=== PATIENT | male | born 1960 | race Caucasian/White ===

== ENCOUNTER → 2023-06-07 07:59 | Outpatient (REF) | payer BC, SELFPAY ==
[2023-06-07 08:23] LABS: % Basophils 0.8 % (0-2); % Eosinophils 1.3 % (0-6); % Immature Granulocytes 6.1 % (0-0.5); % Lymphocytes 9.9 % (20.5-51.1); % Monocytes 6.7 % (1.7-9.3); % Neutrophils 75.2 % (42.2-75.2); Absolute Basophils 0.1 10^3/uL (0-0.2); Absolute Eosinophils 0.2 10^3/uL (0-0.7); Absolute Immature Granulocytes 0.7 10^3/uL (0-0.05); Absolute Lymphocytes 1.2 10^3/uL (1.2-3.4); Absolute Monocytes 0.8 10^3/uL (0.1-0.6); Hematocrit 31.2 % (39.0-52.0); Mean Corp Hgb Conc. 35.3 g/dL (33.0-37.0); Mean Corpuscular Hgb 34.9 pg (27.0-31.0); Mean Platelet Volume 9.3 fL (7.4-10.4); Nucleated Red Blood Cells % 0.2 % (-); Platelet Count 149 10^3/uL (130-400); Red Blood Cell Count 3.15 10^6/uL (4.70-6.10); Red Cell Dist. Width 14.9 % (11.5-14.5); White Blood Cell Count 11.9 10^3/uL (4.8-10.8)
[2023-06-07 09:09] LABS: ALT (SGPT) 30 U/L (0-50); AST (SGOT) 30 U/L (17-59); Albumin 4.3 g/dl (3.5-5.0); Alkaline Phosphatase 131 U/L (38-126); Blood Urea Nitrogen 23 mg/dl (9-20); Carbon Dioxide 23 mmol/L (22-30); Chloride 99 mmol/L (98-107); Glucose 129 mg/dl (70-99); Potassium 3.8 mmol/L (3.5-5.1); Sodium 137 mmol/L (135-145); Total Bilirubin 0.7 mg/dl (0.2-1.3); Total Protein 6.5 g/dl (6.3-8.2); eGFR > 60.00
[2023-06-07 09:17] LABS: Calcium 9.6 mg/dl (8.4-10.2)
[2023-06-07 09:20] LABS: TSH Reflex To Free T4 1.58 uIU/ml (0.47-4.68)
[2023-06-09 09:57] LABS: Magnesium 1.4 mg/dl (1.6-2.3)
== END ==
LOC: REG 07:59
PROVIDERS: ATTENDING PHYSICIAN Internal Medicine Hematology & Oncology; FAMILY PHYSICIAN Family Medicine
DX: C23 Malignant neoplasm of gallbladder (principal)
CPT/HCPCS: 36415; 80053; 83735; 84443; 85025

== ENCOUNTER → 2023-06-28 08:03 | Outpatient (REF) | payer BC, SELFPAY ==
[2023-06-28 08:48] LABS: % Basophils 2.1 % (0-2); % Eosinophils 2.6 % (0-6); % Immature Granulocytes 0.4 % (0-0.5); % Lymphocytes 21.6 % (20.5-51.1); % Monocytes 12.6 % (1.7-9.3); % Neutrophils 60.7 % (42.2-75.2); Absolute Basophils 0.1 10^3/uL (0-0.2); Absolute Eosinophils 0.1 10^3/uL (0-0.7); Absolute Monocytes 0.6 10^3/uL (0.1-0.6); Absolute Neutrophils 2.8 10^3/uL (1.4-6.5); Hematocrit 35.4 % (39.0-52.0); Hemoglobin 12.5 g/dL (13.0-18.0); Mean Corp Hgb Conc. 35.3 g/dL (33.0-37.0); Mean Corpuscular Volume 93.4 fL (80.0-94.0); Mean Platelet Volume 9.8 fL (7.4-10.4); Nucleated Red Blood Cells % 0 % (-); Platelet Count 181 10^3/uL (130-400); Red Blood Cell Count 3.79 10^6/uL (4.70-6.10); Red Cell Dist. Width 12.6 % (11.5-14.5); White Blood Cell Count 4.7 10^3/uL (4.8-10.8)
[2023-06-28 09:30] LABS: ALT (SGPT) 32 U/L (0-50); AST (SGOT) 39 U/L (17-59); Albumin 4.2 g/dl (3.5-5.0); Alkaline Phosphatase 76 U/L (38-126); Blood Urea Nitrogen 23 mg/dl (9-20); Calcium 10.2 mg/dl (8.4-10.2); Carbon Dioxide 25 mmol/L (22-30); Chloride 100 mmol/L (98-107); Glucose 128 mg/dl (70-99); Potassium 3.8 mmol/L (3.5-5.1); Sodium 138 mmol/L (135-145); Total Bilirubin 1.1 mg/dl (0.2-1.3); Total Protein 7.1 g/dl (6.3-8.2); eGFR > 60.00
[2023-06-28 10:09] LABS: TSH Reflex To Free T4 1.53 uIU/ml (0.47-4.68)
== END ==
LOC: REG 08:03
PROVIDERS: ATTENDING PHYSICIAN Internal Medicine Hematology & Oncology; FAMILY PHYSICIAN Family Medicine
DX: C23 Malignant neoplasm of gallbladder (principal)
CPT/HCPCS: 36415; 80053; 84443; 85025

== ENCOUNTER → 2023-06-30 11:00 | Outpatient (REF) | payer BC, SELFPAY ==
[2023-06-30 10:00] LABS: Magnesium 1.7 mg/dl (1.6-2.3)
== END ==
LOC: OIDL 11:00
PROVIDERS: ATTENDING PHYSICIAN Nurse Practitioner Adult Health
DX: C23 Malignant neoplasm of gallbladder (principal)
CPT/HCPCS: 83735

== ENCOUNTER → 2023-07-19 07:22 | Outpatient (REF) | payer BC, SELFPAY ==
[2023-07-19 08:13] LABS: % Basophils 1.5 % (0-2); % Eosinophils 3.5 % (0-6); % Immature Granulocytes 0.4 % (0-0.5); % Lymphocytes 18.3 % (20.5-51.1); % Neutrophils 67.3 % (42.2-75.2); Absolute Basophils 0.1 10^3/uL (0-0.2); Absolute Eosinophils 0.2 10^3/uL (0-0.7); Absolute Monocytes 0.5 10^3/uL (0.1-0.6); Absolute Neutrophils 3.6 10^3/uL (1.4-6.5); Hematocrit 38.1 % (39.0-52.0); Hemoglobin 13.4 g/dL (13.0-18.0); Mean Corp Hgb Conc. 35.2 g/dL (33.0-37.0); Mean Corpuscular Hgb 32.1 pg (27.0-31.0); Mean Corpuscular Volume 91.1 fL (80.0-94.0); Mean Platelet Volume 9.2 fL (7.4-10.4); Nucleated Red Blood Cells % 0 % (-); Platelet Count 157 10^3/uL (130-400); Red Blood Cell Count 4.18 10^6/uL (4.70-6.10); Red Cell Dist. Width 11.6 % (11.5-14.5); White Blood Cell Count 5.4 10^3/uL (4.8-10.8)
[2023-07-19 08:35] LABS: ALT (SGPT) 28 U/L (0-50); AST (SGOT) 34 U/L (17-59); Albumin 4.5 g/dl (3.5-5.0); Alkaline Phosphatase 75 U/L (38-126); Blood Urea Nitrogen 22 mg/dl (9-20); Calcium 9.5 mg/dl (8.4-10.2); Carbon Dioxide 24 mmol/L (22-30); Chloride 106 mmol/L (98-107); Glucose 110 mg/dl (70-99); Magnesium 1.6 mg/dl (1.6-2.3); Potassium 3.6 mmol/L (3.5-5.1); Sodium 137 mmol/L (135-145); Total Bilirubin 1.1 mg/dl (0.2-1.3); eGFR > 60.00
[2023-07-19 09:01] LABS: TSH Reflex To Free T4 2.01 uIU/ml (0.47-4.68)
[2023-07-19 10:05] LABS: Glycohemoglobin (HgbA1c) 4.9 % (4.0-5.6)
== END ==
LOC: REG 07:22
PROVIDERS: ATTENDING PHYSICIAN Internal Medicine Hematology & Oncology; FAMILY PHYSICIAN Family Medicine
DX: C23 Malignant neoplasm of gallbladder (principal)
CPT/HCPCS: 36415; 80053; 83036; 83735; 84443; 85025

== ENCOUNTER → 2023-08-09 07:15 | Outpatient (REF) | payer BC, SELFPAY ==
[2023-08-09 09:03] LABS: % Basophils 1.2 % (0-2); % Immature Granulocytes 0.4 % (0-0.5); % Lymphocytes 19.3 % (20.5-51.1); % Monocytes 9.7 % (1.7-9.3); % Neutrophils 67.4 % (42.2-75.2); Absolute Basophils 0.1 10^3/uL (0-0.2); Absolute Eosinophils 0.1 10^3/uL (0-0.7); Absolute Lymphocytes 1.3 10^3/uL (1.2-3.4); Absolute Monocytes 0.7 10^3/uL (0.1-0.6); Absolute Neutrophils 4.6 10^3/uL (1.4-6.5); Hematocrit 42.3 % (39.0-52.0); Hemoglobin 14.6 g/dL (13.0-18.0); Mean Corp Hgb Conc. 34.5 g/dL (33.0-37.0); Mean Corpuscular Hgb 30.5 pg (27.0-31.0); Mean Corpuscular Volume 88.5 fL (80.0-94.0); Mean Platelet Volume 9.1 fL (7.4-10.4); Nucleated Red Blood Cells % 0 % (-); Platelet Count 194 10^3/uL (130-400); Red Blood Cell Count 4.78 10^6/uL (4.70-6.10); Red Cell Dist. Width 11.6 % (11.5-14.5); White Blood Cell Count 6.8 10^3/uL (4.8-10.8)
[2023-08-09 09:31] LABS: ALT (SGPT) 31 U/L (0-50); AST (SGOT) 34 U/L (17-59); Albumin 4.9 g/dl (3.5-5.0); Alkaline Phosphatase 94 U/L (38-126); Blood Urea Nitrogen 27 mg/dl (9-20); Calcium 10.4 mg/dl (8.4-10.2); Carbon Dioxide 26 mmol/L (22-30); Chloride 99 mmol/L (98-107); Glucose 123 mg/dl (70-99); Potassium 3.9 mmol/L (3.5-5.1); Sodium 137 mmol/L (135-145); Total Bilirubin 0.8 mg/dl (0.2-1.3); Total Protein 7.5 g/dl (6.3-8.2); eGFR 51.99
[2023-08-09 09:46] LABS: Free T4 1.03 ng/dl (0.78-2.19)
[2023-08-09 10:00] LABS: TSH 1.91 uIU/ml (0.47-4.68)
== END ==
LOC: REG 07:15
PROVIDERS: ATTENDING PHYSICIAN Internal Medicine Hematology & Oncology; FAMILY PHYSICIAN Family Medicine
DX: C23 Malignant neoplasm of gallbladder (principal)
CPT/HCPCS: 36415; 80053; 84439; 84443; 85025

== ENCOUNTER → 2023-08-11 16:33 | Outpatient (REF) | payer BC, SELFPAY ==
[2023-08-11 11:14] LABS: ALT (SGPT) 28 U/L (0-50); AST (SGOT) 29 U/L (17-59); Albumin 4.3 g/dl (3.5-5.0); Alkaline Phosphatase 79 U/L (38-126); Blood Urea Nitrogen 18 mg/dl (9-20); Calcium 9.7 mg/dl (8.4-10.2); Carbon Dioxide 29 mmol/L (22-30); Chloride 98 mmol/L (98-107); Glucose 103 mg/dl (70-99); Sodium 136 mmol/L (135-145); Total Bilirubin 0.6 mg/dl (0.2-1.3); Total Protein 6.7 g/dl (6.3-8.2); eGFR > 60.00
== END ==
LOC: OIDL 16:33
PROVIDERS: ATTENDING PHYSICIAN Internal Medicine Hematology & Oncology
DX: C23 Malignant neoplasm of gallbladder (principal)
CPT/HCPCS: 80053

== ENCOUNTER → 2023-08-30 08:05 | Outpatient (REF) | payer BC, SELFPAY ==
[2023-08-30 08:36] LABS: % Basophils 1.2 % (0-2); % Eosinophils 2.1 % (0-6); % Immature Granulocytes 0.4 % (0-0.5); % Lymphocytes 18.2 % (20.5-51.1); % Monocytes 9.4 % (1.7-9.3); % Neutrophils 68.7 % (42.2-75.2); Absolute Basophils 0.1 10^3/uL (0-0.2); Absolute Eosinophils 0.2 10^3/uL (0-0.7); Absolute Lymphocytes 1.4 10^3/uL (1.2-3.4); Absolute Monocytes 0.7 10^3/uL (0.1-0.6); Absolute Neutrophils 5.3 10^3/uL (1.4-6.5); Hematocrit 41.8 % (39.0-52.0); Hemoglobin 14.4 g/dL (13.0-18.0); Mean Corp Hgb Conc. 34.4 g/dL (33.0-37.0); Mean Corpuscular Hgb 29.8 pg (27.0-31.0); Mean Corpuscular Volume 86.5 fL (80.0-94.0); Mean Platelet Volume 8.5 fL (7.4-10.4); Nucleated Red Blood Cells % 0 % (-); Platelet Count 195 10^3/uL (130-400); Red Blood Cell Count 4.83 10^6/uL (4.70-6.10); White Blood Cell Count 7.8 10^3/uL (4.8-10.8)
[2023-08-30 09:21] LABS: ALT (SGPT) 30 U/L (0-50); AST (SGOT) 39 U/L (17-59); Albumin 4.5 g/dl (3.5-5.0); Alkaline Phosphatase 87 U/L (38-126); Blood Urea Nitrogen 22 mg/dl (9-20); Calcium 9.9 mg/dl (8.4-10.2); Carbon Dioxide 28 mmol/L (22-30); Chloride 101 mmol/L (98-107); Glucose 120 mg/dl (70-99); Potassium 3.8 mmol/L (3.5-5.1); Sodium 136 mmol/L (135-145); Total Bilirubin 0.8 mg/dl (0.2-1.3); eGFR > 60.00
[2023-08-30 10:44] LABS: TSH Reflex To Free T4 2.42 uIU/ml (0.47-4.68)
== END ==
LOC: REG 08:05
PROVIDERS: ATTENDING PHYSICIAN Internal Medicine Hematology & Oncology
DX: C23 Malignant neoplasm of gallbladder (principal)
CPT/HCPCS: 36415; 80053; 84443; 85025

== ENCOUNTER → 2023-09-20 07:48 | Outpatient (REF) | payer BC, SELFPAY ==
[2023-09-20 08:56] LABS: % Basophils 1.1 % (0-2); % Eosinophils 3.6 % (0-6); % Immature Granulocytes 0.4 % (0-0.5); % Lymphocytes 19.6 % (20.5-51.1); % Monocytes 11.1 % (1.7-9.3); % Neutrophils 64.2 % (42.2-75.2); Absolute Basophils 0.1 10^3/uL (0-0.2); Absolute Eosinophils 0.3 10^3/uL (0-0.7); Absolute Lymphocytes 1.4 10^3/uL (1.2-3.4); Absolute Monocytes 0.8 10^3/uL (0.1-0.6); Absolute Neutrophils 4.7 10^3/uL (1.4-6.5); Hematocrit 41.7 % (39.0-52.0); Hemoglobin 14.5 g/dL (13.0-18.0); Mean Corp Hgb Conc. 34.8 g/dL (33.0-37.0); Mean Corpuscular Hgb 29.4 pg (27.0-31.0); Mean Corpuscular Volume 84.6 fL (80.0-94.0); Nucleated Red Blood Cells % 0 % (-); Platelet Count 188 10^3/uL (130-400); Red Blood Cell Count 4.93 10^6/uL (4.70-6.10); Red Cell Dist. Width 12.9 % (11.5-14.5); White Blood Cell Count 7.3 10^3/uL (4.8-10.8)
[2023-09-20 09:34] LABS: ALT (SGPT) 24 U/L (0-50); AST (SGOT) 35 U/L (17-59); Albumin 4.7 g/dl (3.5-5.0); Alkaline Phosphatase 87 U/L (38-126); Blood Urea Nitrogen 22 mg/dl (9-20); Calcium 10.3 mg/dl (8.4-10.2); Carbon Dioxide 25 mmol/L (22-30); Chloride 100 mmol/L (98-107); Glucose 117 mg/dl (70-99); Potassium 3.7 mmol/L (3.5-5.1); Sodium 139 mmol/L (135-145); Total Bilirubin 1.2 mg/dl (0.2-1.3); Total Protein 7.4 g/dl (6.3-8.2); eGFR > 60.00
[2023-09-20 10:03] LABS: TSH Reflex To Free T4 3.11 uIU/ml (0.47-4.68)
== END ==
LOC: REG 07:48
PROVIDERS: ATTENDING PHYSICIAN Internal Medicine Hematology & Oncology; FAMILY PHYSICIAN Family Medicine
DX: C23 Malignant neoplasm of gallbladder (principal)
CPT/HCPCS: 36415; 80053; 84443; 85025

== ENCOUNTER → 2023-10-11 07:51 | Outpatient (REF) | payer BC, SELFPAY ==
[2023-10-11 09:43] LABS: % Basophils 1.3 % (0-2); % Eosinophils 2.6 % (0-6); % Immature Granulocytes 0.6 % (0-0.5); % Monocytes 9.5 % (1.7-9.3); Absolute Basophils 0.1 10^3/uL (0-0.2); Absolute Eosinophils 0.2 10^3/uL (0-0.7); Absolute Immature Granulocytes 0.1 10^3/uL (0-0.05); Absolute Lymphocytes 1.4 10^3/uL (1.2-3.4); Absolute Monocytes 0.8 10^3/uL (0.1-0.6); Absolute Neutrophils 5.8 10^3/uL (1.4-6.5); Hematocrit 42.3 % (39.0-52.0); Hemoglobin 14.6 g/dL (13.0-18.0); Mean Corp Hgb Conc. 34.5 g/dL (33.0-37.0); Mean Corpuscular Hgb 29.3 pg (27.0-31.0); Mean Corpuscular Volume 84.8 fL (80.0-94.0); Mean Platelet Volume 8.8 fL (7.4-10.4); Nucleated Red Blood Cells % 0 % (-); Platelet Count 217 10^3/uL (130-400); Red Blood Cell Count 4.99 10^6/uL (4.70-6.10); Red Cell Dist. Width 13.5 % (11.5-14.5); White Blood Cell Count 8.4 10^3/uL (4.8-10.8)
[2023-10-11 11:44] LABS: ALT (SGPT) 25 U/L (0-50); AST (SGOT) 35 U/L (17-59); Albumin 4.8 g/dl (3.5-5.0); Alkaline Phosphatase 100 U/L (38-126); Blood Urea Nitrogen 23 mg/dl (9-20); Calcium 10.5 mg/dl (8.4-10.2); Carbon Dioxide 25 mmol/L (22-30); Chloride 102 mmol/L (98-107); Glucose 123 mg/dl (70-99); Potassium 3.9 mmol/L (3.5-5.1); Sodium 138 mmol/L (135-145); Total Bilirubin 1.3 mg/dl (0.2-1.3); Total Protein 7.6 g/dl (6.3-8.2); eGFR > 60.00
[2023-10-11 12:44] LABS: TSH Reflex To Free T4 2.31 uIU/ml (0.47-4.68)
== END ==
LOC: REG 07:51
PROVIDERS: ATTENDING PHYSICIAN Internal Medicine Hematology & Oncology; FAMILY PHYSICIAN Family Medicine
DX: C23 Malignant neoplasm of gallbladder (principal)
CPT/HCPCS: 36415; 80053; 84443; 85025

== ENCOUNTER → 2023-11-01 07:58 | Outpatient (REF) | payer BC, SELFPAY ==
[2023-11-01 08:45] LABS: % Basophils 1.4 % (0-2); % Eosinophils 1.7 % (0-6); % Immature Granulocytes 0.6 % (0-0.5); % Lymphocytes 17.8 % (20.5-51.1); % Monocytes 8.3 % (1.7-9.3); % Neutrophils 70.2 % (42.2-75.2); Absolute Basophils 0.1 10^3/uL (0-0.2); Absolute Eosinophils 0.1 10^3/uL (0-0.7); Absolute Immature Granulocytes 0.1 10^3/uL (0-0.05); Absolute Lymphocytes 1.4 10^3/uL (1.2-3.4); Absolute Monocytes 0.7 10^3/uL (0.1-0.6); Absolute Neutrophils 5.5 10^3/uL (1.4-6.5); Hematocrit 41.2 % (39.0-52.0); Hemoglobin 14.3 g/dL (13.0-18.0); Mean Corp Hgb Conc. 34.7 g/dL (33.0-37.0); Mean Corpuscular Hgb 29.3 pg (27.0-31.0); Mean Corpuscular Volume 84.4 fL (80.0-94.0); Nucleated Red Blood Cells % 0 % (-); Platelet Count 222 10^3/uL (130-400); Red Blood Cell Count 4.88 10^6/uL (4.70-6.10); Red Cell Dist. Width 13.8 % (11.5-14.5); White Blood Cell Count 7.8 10^3/uL (4.8-10.8)
[2023-11-01 09:15] LABS: ALT (SGPT) 25 U/L (0-50); AST (SGOT) 32 U/L (17-59); Albumin 4.8 g/dl (3.5-5.0); Alkaline Phosphatase 99 U/L (38-126); Blood Urea Nitrogen 23 mg/dl (9-20); Carbon Dioxide 24 mmol/L (22-30); Chloride 102 mmol/L (98-107); Glucose 126 mg/dl (70-99); Potassium 3.8 mmol/L (3.5-5.1); Sodium 138 mmol/L (135-145); Total Protein 7.2 g/dl (6.3-8.2); eGFR > 60.00
[2023-11-01 09:44] LABS: TSH Reflex To Free T4 2.42 uIU/ml (0.47-4.68)
== END ==
LOC: REG 07:58
PROVIDERS: ATTENDING PHYSICIAN Internal Medicine Hematology & Oncology; FAMILY PHYSICIAN Family Medicine
DX: C23 Malignant neoplasm of gallbladder (principal)
CPT/HCPCS: 36415; 80053; 84443; 85025

== ENCOUNTER → 2023-11-22 07:51 | Outpatient (REF) | payer BC, SELFPAY ==
[2023-11-22 09:06] LABS: % Basophils 1.2 % (0-2); % Eosinophils 1.8 % (0-6); % Immature Granulocytes 0.3 % (0-0.5); % Lymphocytes 17.7 % (20.5-51.1); % Monocytes 9.5 % (1.7-9.3); % Neutrophils 69.5 % (42.2-75.2); Absolute Basophils 0.1 10^3/uL (0-0.2); Absolute Eosinophils 0.1 10^3/uL (0-0.7); Absolute Lymphocytes 1.2 10^3/uL (1.2-3.4); Absolute Monocytes 0.6 10^3/uL (0.1-0.6); Absolute Neutrophils 4.7 10^3/uL (1.4-6.5); Hematocrit 41.5 % (39.0-52.0); Hemoglobin 14.2 g/dL (13.0-18.0); Mean Corp Hgb Conc. 34.2 g/dL (33.0-37.0); Mean Corpuscular Hgb 29.8 pg (27.0-31.0); Mean Platelet Volume 9.1 fL (7.4-10.4); Nucleated Red Blood Cells % 0 % (-); Platelet Count 196 10^3/uL (130-400); Red Blood Cell Count 4.77 10^6/uL (4.70-6.10); Red Cell Dist. Width 13.5 % (11.5-14.5); White Blood Cell Count 6.7 10^3/uL (4.8-10.8)
[2023-11-22 09:25] LABS: ALT (SGPT) 27 U/L (0-50); AST (SGOT) 36 U/L (17-59); Albumin 4.6 g/dl (3.5-5.0); Alkaline Phosphatase 105 U/L (38-126); Blood Urea Nitrogen 21 mg/dl (9-20); Calcium 10.2 mg/dl (8.4-10.2); Carbon Dioxide 27 mmol/L (22-30); Chloride 101 mmol/L (98-107); Glucose 115 mg/dl (70-99); Potassium 3.7 mmol/L (3.5-5.1); Sodium 139 mmol/L (135-145); Total Bilirubin 1.2 mg/dl (0.2-1.3); Total Protein 7.2 g/dl (6.3-8.2); eGFR > 60.00
[2023-11-22 09:54] LABS: TSH Reflex To Free T4 2.58 uIU/ml (0.47-4.68)
== END ==
LOC: REG 07:51
PROVIDERS: ATTENDING PHYSICIAN Internal Medicine Hematology & Oncology; FAMILY PHYSICIAN Family Medicine
DX: C23 Malignant neoplasm of gallbladder (principal)
CPT/HCPCS: 36415; 80053; 84443; 85025

== ENCOUNTER → 2023-12-13 08:32 | Outpatient (REF) | payer BC, SELFPAY ==
[2023-12-13 10:33] LABS: % Basophils 1.2 % (0-2); % Eosinophils 1.7 % (0-6); % Immature Granulocytes 0.7 % (0-0.5); % Lymphocytes 15.6 % (20.5-51.1); % Monocytes 9.5 % (1.7-9.3); % Neutrophils 71.3 % (42.2-75.2); Absolute Basophils 0.1 10^3/uL (0-0.2); Absolute Eosinophils 0.1 10^3/uL (0-0.7); Absolute Immature Granulocytes 0.1 10^3/uL (0-0.05); Absolute Lymphocytes 1.2 10^3/uL (1.2-3.4); Absolute Monocytes 0.7 10^3/uL (0.1-0.6); Absolute Neutrophils 5.4 10^3/uL (1.4-6.5); Hematocrit 41.8 % (39.0-52.0); Hemoglobin 14.4 g/dL (13.0-18.0); Mean Corp Hgb Conc. 34.4 g/dL (33.0-37.0); Mean Corpuscular Hgb 29.9 pg (27.0-31.0); Mean Corpuscular Volume 86.7 fL (80.0-94.0); Mean Platelet Volume 8.7 fL (7.4-10.4); Nucleated Red Blood Cells % 0 % (-); Platelet Count 202 10^3/uL (130-400); Red Blood Cell Count 4.82 10^6/uL (4.70-6.10); Red Cell Dist. Width 13.2 % (11.5-14.5); White Blood Cell Count 7.6 10^3/uL (4.8-10.8)
[2023-12-13 11:11] LABS: ALT (SGPT) 26 U/L (0-50); AST (SGOT) 41 U/L (17-59); Albumin 4.7 g/dl (3.5-5.0); Alkaline Phosphatase 122 U/L (38-126); Blood Urea Nitrogen 23 mg/dl (9-20); Calcium 9.9 mg/dl (8.4-10.2); Carbon Dioxide 25 mmol/L (22-30); Chloride 100 mmol/L (98-107); Glucose 104 mg/dl (70-99); Magnesium 1.8 mg/dl (1.6-2.3); Potassium 4.1 mmol/L (3.5-5.1); Sodium 138 mmol/L (135-145); Total Protein 7.2 g/dl (6.3-8.2); eGFR > 60.00
[2023-12-13 11:28] LABS: TSH Reflex To Free T4 1.69 uIU/ml (0.47-4.68)
[2023-12-13 12:12] LABS: Total Bilirubin 1.2 mg/dl (0.2-1.3)
== END ==
LOC: REG 08:32
PROVIDERS: ATTENDING PHYSICIAN Internal Medicine Hematology & Oncology; FAMILY PHYSICIAN Family Medicine
DX: C23 Malignant neoplasm of gallbladder (principal)
CPT/HCPCS: 36415; 80053; 83735; 84443; 85025

== ENCOUNTER → 2023-12-20 07:46 | Outpatient (REF) | payer BC, SELFPAY ==
[2023-12-20 09:40] LABS: % Eosinophils 2.4 % (0-6); % Immature Granulocytes 0.6 % (0-0.5); % Lymphocytes 14.7 % (20.5-51.1); % Monocytes 9.3 % (1.7-9.3); Absolute Basophils 0.1 10^3/uL (0-0.2); Absolute Eosinophils 0.2 10^3/uL (0-0.7); Absolute Immature Granulocytes 0.1 10^3/uL (0-0.05); Absolute Lymphocytes 1.2 10^3/uL (1.2-3.4); Absolute Monocytes 0.8 10^3/uL (0.1-0.6); Hematocrit 40.8 % (39.0-52.0); Hemoglobin 14.2 g/dL (13.0-18.0); Mean Corp Hgb Conc. 34.8 g/dL (33.0-37.0); Mean Corpuscular Hgb 29.5 pg (27.0-31.0); Mean Corpuscular Volume 84.8 fL (80.0-94.0); Mean Platelet Volume 8.6 fL (7.4-10.4); Nucleated Red Blood Cells % 0 % (-); Platelet Count 219 10^3/uL (130-400); Red Blood Cell Count 4.81 10^6/uL (4.70-6.10); Red Cell Dist. Width 13.1 % (11.5-14.5); White Blood Cell Count 8.3 10^3/uL (4.8-10.8)
[2023-12-20 10:21] LABS: ALT (SGPT) 28 U/L (0-50); AST (SGOT) 40 U/L (17-59); Albumin 4.6 g/dl (3.5-5.0); Alkaline Phosphatase 137 U/L (38-126); Blood Urea Nitrogen 19 mg/dl (9-20); Carbon Dioxide 26 mmol/L (22-30); Chloride 99 mmol/L (98-107); Glucose 115 mg/dl (70-99); Magnesium 1.9 mg/dl (1.6-2.3); Sodium 136 mmol/L (135-145); Total Bilirubin 0.9 mg/dl (0.2-1.3); eGFR > 60.00
[2023-12-20 10:46] LABS: TSH Reflex To Free T4 2.13 uIU/ml (0.47-4.68)
== END ==
LOC: REG 07:46
PROVIDERS: ATTENDING PHYSICIAN Internal Medicine Hematology & Oncology; FAMILY PHYSICIAN Family Medicine
DX: C23 Malignant neoplasm of gallbladder (principal)
CPT/HCPCS: 36415; 80053; 83735; 84443; 85025

== ENCOUNTER → 2023-12-27 07:38 | Outpatient (REF) | payer BC, SELFPAY ==
[2023-12-27 09:13] LABS: % Eosinophils 1.7 % (0-6); % Immature Granulocytes 0.5 % (0-0.5); % Lymphocytes 17.6 % (20.5-51.1); % Monocytes 2.1 % (1.7-9.3); % Neutrophils 77.1 % (42.2-75.2); Absolute Basophils 0.1 10^3/uL (0-0.2); Absolute Eosinophils 0.1 10^3/uL (0-0.7); Absolute Monocytes 0.1 10^3/uL (0.1-0.6); Absolute Neutrophils 4.5 10^3/uL (1.4-6.5); Hematocrit 40.4 % (39.0-52.0); Hemoglobin 13.8 g/dL (13.0-18.0); Mean Corp Hgb Conc. 34.2 g/dL (33.0-37.0); Mean Corpuscular Hgb 29.2 pg (27.0-31.0); Mean Corpuscular Volume 85.4 fL (80.0-94.0); Mean Platelet Volume 8.7 fL (7.4-10.4); Nucleated Red Blood Cells % 0 % (-); Platelet Count 207 10^3/uL (130-400); Red Blood Cell Count 4.73 10^6/uL (4.70-6.10); Red Cell Dist. Width 12.6 % (11.5-14.5); White Blood Cell Count 5.8 10^3/uL (4.8-10.8)
[2023-12-27 10:04] LABS: ALT (SGPT) 136 U/L (0-50); AST (SGOT) 70 U/L (17-59); Albumin 4.4 g/dl (3.5-5.0); Alkaline Phosphatase 116 U/L (38-126); Blood Urea Nitrogen 26 mg/dl (9-20); Calcium 10.1 mg/dl (8.4-10.2); Carbon Dioxide 33 mmol/L (22-30); Chloride 95 mmol/L (98-107); Glucose 108 mg/dl (70-99); Magnesium 1.7 mg/dl (1.6-2.3); Potassium 4.4 mmol/L (3.5-5.1); Sodium 139 mmol/L (135-145); Total Bilirubin 1.2 mg/dl (0.2-1.3); eGFR > 60.00
[2023-12-27 10:33] LABS: TSH Reflex To Free T4 1.59 uIU/ml (0.47-4.68)
== END ==
LOC: REG 07:38
PROVIDERS: ATTENDING PHYSICIAN Internal Medicine Hematology & Oncology; FAMILY PHYSICIAN Family Medicine
DX: C23 Malignant neoplasm of gallbladder (principal)
CPT/HCPCS: 36415; 80053; 83735; 84443; 85025

== ENCOUNTER → 2024-01-10 08:14 | Outpatient (REF) | payer BC, SELFPAY ==
[2024-01-10 09:33] LABS: % Basophils 0.6 % (0-2); % Eosinophils 1.9 % (0-6); % Immature Granulocytes 0.6 % (0-0.5); % Lymphocytes 24.2 % (20.5-51.1); % Monocytes 9.7 % (1.7-9.3); Absolute Eosinophils 0.1 10^3/uL (0-0.7); Absolute Lymphocytes 0.9 10^3/uL (1.2-3.4); Absolute Monocytes 0.4 10^3/uL (0.1-0.6); Absolute Neutrophils 2.3 10^3/uL (1.4-6.5); Hematocrit 35.6 % (39.0-52.0); Hemoglobin 12.3 g/dL (13.0-18.0); Mean Corp Hgb Conc. 34.6 g/dL (33.0-37.0); Mean Corpuscular Hgb 29.3 pg (27.0-31.0); Mean Corpuscular Volume 84.8 fL (80.0-94.0); Mean Platelet Volume 9.1 fL (7.4-10.4); Nucleated Red Blood Cells % 0 % (-); Platelet Count 154 10^3/uL (130-400); Red Cell Dist. Width 13.5 % (11.5-14.5); White Blood Cell Count 3.6 10^3/uL (4.8-10.8)
[2024-01-10 10:02] LABS: Magnesium 1.5 mg/dl (1.6-2.3)
[2024-01-10 10:20] LABS: TSH Reflex To Free T4 1.79 uIU/ml (0.47-4.68)
[2024-01-11 08:30] LABS: ALT (SGPT) 33 U/L (0-50); AST (SGOT) 34 U/L (17-59); Albumin 4.5 g/dl (3.5-5.0); Alkaline Phosphatase 142 U/L (38-126); Blood Urea Nitrogen 23 mg/dl (9-20); Calcium 9.6 mg/dl (8.4-10.2); Carbon Dioxide 22 mmol/L (22-30); Chloride 101 mmol/L (98-107); Glucose 123 mg/dl (70-99); Potassium 3.7 mmol/L (3.5-5.1); Sodium 139 mmol/L (135-145); Total Bilirubin 0.6 mg/dl (0.2-1.3); Total Protein 6.8 g/dl (6.3-8.2); eGFR > 60.00
== END ==
LOC: REG 08:14
PROVIDERS: ATTENDING PHYSICIAN Internal Medicine Hematology & Oncology; FAMILY PHYSICIAN Family Medicine
DX: C23 Malignant neoplasm of gallbladder (principal)
CPT/HCPCS: 36415; 80053; 83735; 84443; 85025

== ENCOUNTER → 2024-01-17 08:43 | Outpatient (REF) | payer BC, SELFPAY ==
[2024-01-17 10:04] LABS: ALT (SGPT) 44 U/L (0-50); AST (SGOT) 34 U/L (17-59); Albumin 4.3 g/dl (3.5-5.0); Alkaline Phosphatase 113 U/L (38-126); Blood Urea Nitrogen 29 mg/dl (9-20); Carbon Dioxide 27 mmol/L (22-30); Chloride 97 mmol/L (98-107); Glucose 117 mg/dl (70-99); Magnesium 1.5 mg/dl (1.6-2.3); Potassium 4.5 mmol/L (3.5-5.1); Sodium 137 mmol/L (135-145); Total Bilirubin 0.8 mg/dl (0.2-1.3); Total Protein 6.7 g/dl (6.3-8.2); eGFR > 60.00
[2024-01-17 10:57] LABS: TSH Reflex To Free T4 1.45 uIU/ml (0.47-4.68)
[2024-01-17 11:14] LABS: Band Neutrophils 1 % (0-3); Segmented Neutrophils 36 % (42-75)
[2024-01-17 11:15] LABS: Atypical Lymphocytes 5 %; Eosinophils 1 % (0-6); Lymphocytes 50 % (20-51); Monocytes 5 % (2-9); Myelocytes 2 % (-); Total Cells Counted 100
[2024-01-17 11:19] LABS: Absolute Neutrophils -Man Diff 0.5 10^3/uL (1.4-6.5); Hematocrit 35.3 % (39.0-52.0); Hemoglobin 12.3 g/dL (13.0-18.0); Mean Corp Hgb Conc. 34.8 g/dL (33.0-37.0); Mean Corpuscular Hgb 30.1 pg (27.0-31.0); Mean Corpuscular Volume 86.5 fL (80.0-94.0); Mean Platelet Volume 8.2 fL (7.4-10.4); Platelet Count 394 10^3/uL (130-400); Red Blood Cell Count 4.08 10^6/uL (4.70-6.10); Red Cell Dist. Width 13.4 % (11.5-14.5); White Blood Cell Count 1.5 10^3/uL (4.8-10.8)
[2024-01-17 11:20] LABS: Normal RBC Morphology Yes; Platelets Checked Yes
== END ==
LOC: REG 08:43
PROVIDERS: ATTENDING PHYSICIAN Internal Medicine Hematology & Oncology; FAMILY PHYSICIAN Family Medicine
DX: C23 Malignant neoplasm of gallbladder (principal)
CPT/HCPCS: 36415; 80053; 83735; 84443; 85025

== ENCOUNTER → 2024-01-31 08:04 | Outpatient (REF) | payer BC, SELFPAY ==
[2024-01-31 08:34] LABS: % Basophils 0.6 % (0-2); % Eosinophils 0.3 % (0-6); % Immature Granulocytes 7.8 % (0-0.5); % Lymphocytes 4.7 % (20.5-51.1); % Neutrophils 78.6 % (42.2-75.2); Absolute Basophils 0.1 10^3/uL (0-0.2); Absolute Eosinophils 0.1 10^3/uL (0-0.7); Absolute Immature Granulocytes 1.5 10^3/uL (0-0.05); Absolute Lymphocytes 0.9 10^3/uL (1.2-3.4); Absolute Monocytes 1.6 10^3/uL (0.1-0.6); Absolute Neutrophils 15.3 10^3/uL (1.4-6.5); Hematocrit 30.8 % (39.0-52.0); Hemoglobin 10.9 g/dL (13.0-18.0); Mean Corp Hgb Conc. 35.4 g/dL (33.0-37.0); Mean Corpuscular Hgb 29.8 pg (27.0-31.0); Mean Corpuscular Volume 84.2 fL (80.0-94.0); Mean Platelet Volume 9.7 fL (7.4-10.4); Nucleated Red Blood Cells % 0.1 % (-); Platelet Count 161 10^3/uL (130-400); Red Blood Cell Count 3.66 10^6/uL (4.70-6.10); Red Cell Dist. Width 15.7 % (11.5-14.5); White Blood Cell Count 19.4 10^3/uL (4.8-10.8)
[2024-01-31 08:59] LABS: ALT (SGPT) 26 U/L (0-50); AST (SGOT) 28 U/L (17-59); Albumin 3.9 g/dl (3.5-5.0); Alkaline Phosphatase 157 U/L (38-126); Blood Urea Nitrogen 19 mg/dl (9-20); Calcium 9.1 mg/dl (8.4-10.2); Carbon Dioxide 27 mmol/L (22-30); Chloride 94 mmol/L (98-107); Glucose 149 mg/dl (70-99); Magnesium 1.5 mg/dl (1.6-2.3); Potassium 3.7 mmol/L (3.5-5.1); Sodium 136 mmol/L (135-145); Total Bilirubin 0.9 mg/dl (0.2-1.3); Total Protein 6.4 g/dl (6.3-8.2); eGFR > 60.00
== END ==
LOC: REG 08:04
PROVIDERS: ATTENDING PHYSICIAN Internal Medicine Hematology & Oncology; FAMILY PHYSICIAN Family Medicine
DX: C23 Malignant neoplasm of gallbladder (principal)
CPT/HCPCS: 36415; 80053; 83735; 84443; 85025

== ENCOUNTER → 2024-02-07 08:16 | Outpatient (REF) | payer BC, SELFPAY ==
[2024-02-07 08:51] LABS: % Basophils 1.3 % (0-2); % Eosinophils 1.3 % (0-6); % Immature Granulocytes 0.9 % (0-0.5); % Monocytes 3.1 % (1.7-9.3); % Neutrophils 83.4 % (42.2-75.2); Absolute Basophils 0.1 10^3/uL (0-0.2); Absolute Eosinophils 0.1 10^3/uL (0-0.7); Absolute Immature Granulocytes 0.1 10^3/uL (0-0.05); Absolute Lymphocytes 0.6 10^3/uL (1.2-3.4); Absolute Monocytes 0.2 10^3/uL (0.1-0.6); Absolute Neutrophils 5.3 10^3/uL (1.4-6.5); Hemoglobin 10.5 g/dL (13.0-18.0); Mean Corpuscular Hgb 30.9 pg (27.0-31.0); Mean Corpuscular Volume 88.2 fL (80.0-94.0); Nucleated Red Blood Cells % 0 % (-); Platelet Count 350 10^3/uL (130-400); Red Cell Dist. Width 15.7 % (11.5-14.5); White Blood Cell Count 6.4 10^3/uL (4.8-10.8)
[2024-02-07 09:35] LABS: ALT (SGPT) 76 U/L (0-50); AST (SGOT) 38 U/L (17-59); Albumin 4.1 g/dl (3.5-5.0); Alkaline Phosphatase 134 U/L (38-126); Blood Urea Nitrogen 23 mg/dl (9-20); Calcium 9.7 mg/dl (8.4-10.2); Carbon Dioxide 29 mmol/L (22-30); Chloride 99 mmol/L (98-107); Glucose 118 mg/dl (70-99); Magnesium 1.6 mg/dl (1.6-2.3); Potassium 4.5 mmol/L (3.5-5.1); Sodium 140 mmol/L (135-145); Total Protein 6.5 g/dl (6.3-8.2); eGFR > 60.00
[2024-02-07 10:08] LABS: TSH Reflex To Free T4 1.24 uIU/ml (0.47-4.68)
== END ==
LOC: REG 08:16
PROVIDERS: ATTENDING PHYSICIAN Internal Medicine Hematology & Oncology; FAMILY PHYSICIAN Family Medicine
DX: C23 Malignant neoplasm of gallbladder (principal)
CPT/HCPCS: 36415; 80053; 83735; 84443; 85025

== ENCOUNTER → 2024-02-21 10:40 | Outpatient (REF) | payer BC, SELFPAY ==
[2024-02-21 11:41] LABS: % Basophils 0.5 % (0-2); % Eosinophils 0.2 % (0-6); % Immature Granulocytes 4.2 % (0-0.5); % Lymphocytes 3.8 % (20.5-51.1); % Monocytes 7.3 % (1.7-9.3); Absolute Basophils 0.1 10^3/uL (0-0.2); Absolute Immature Granulocytes 0.7 10^3/uL (0-0.05); Absolute Lymphocytes 0.7 10^3/uL (1.2-3.4); Absolute Monocytes 1.3 10^3/uL (0.1-0.6); Absolute Neutrophils 14.6 10^3/uL (1.4-6.5); Hematocrit 27.1 % (39.0-52.0); Hemoglobin 9.4 g/dL (13.0-18.0); Mean Corp Hgb Conc. 34.7 g/dL (33.0-37.0); Mean Corpuscular Hgb 30.9 pg (27.0-31.0); Mean Corpuscular Volume 89.1 fL (80.0-94.0); Mean Platelet Volume 9.5 fL (7.4-10.4); Nucleated Red Blood Cells % 0 % (-); Platelet Count 153 10^3/uL (130-400); Red Blood Cell Count 3.04 10^6/uL (4.70-6.10); White Blood Cell Count 17.3 10^3/uL (4.8-10.8)
[2024-02-21 14:26] LABS: ALT (SGPT) 20 U/L (0-50); AST (SGOT) 21 U/L (17-59); Albumin 4.3 g/dl (3.5-5.0); Alkaline Phosphatase 157 U/L (38-126); Blood Urea Nitrogen 26 mg/dl (9-20); Calcium 8.9 mg/dl (8.4-10.2); Carbon Dioxide 25 mmol/L (22-30); Chloride 95 mmol/L (98-107); Glucose 114 mg/dl (70-99); Magnesium 1.6 mg/dl (1.6-2.3); Potassium 3.7 mmol/L (3.5-5.1); Sodium 136 mmol/L (135-145); Total Bilirubin 1.4 mg/dl (0.2-1.3); Total Protein 6.7 g/dl (6.3-8.2); eGFR > 60.00
[2024-02-21 14:35] LABS: TSH Reflex To Free T4 1.35 uIU/ml (0.47-4.68)
== END ==
LOC: REG 10:40
PROVIDERS: ATTENDING PHYSICIAN Internal Medicine Hematology & Oncology; FAMILY PHYSICIAN Family Medicine
DX: C23 Malignant neoplasm of gallbladder (principal)
CPT/HCPCS: 36415; 80053; 83735; 84443; 85025

== ENCOUNTER → 2024-02-28 07:57 | Outpatient (REF) | payer BC, SELFPAY ==
[2024-02-28 09:47] LABS: % Basophils 0.8 % (0-2); % Eosinophils 0.9 % (0-6); % Immature Granulocytes 0.6 % (0-0.5); % Lymphocytes 10.8 % (20.5-51.1); % Monocytes 3.8 % (1.7-9.3); % Neutrophils 83.1 % (42.2-75.2); Absolute Eosinophils 0.1 10^3/uL (0-0.7); Absolute Lymphocytes 0.6 10^3/uL (1.2-3.4); Absolute Monocytes 0.2 10^3/uL (0.1-0.6); Absolute Neutrophils 4.4 10^3/uL (1.4-6.5); Hematocrit 26.3 % (39.0-52.0); Hemoglobin 8.7 g/dL (13.0-18.0); Mean Corp Hgb Conc. 33.1 g/dL (33.0-37.0); Mean Corpuscular Hgb 30.2 pg (27.0-31.0); Mean Corpuscular Volume 91.3 fL (80.0-94.0); Mean Platelet Volume 8.4 fL (7.4-10.4); Nucleated Red Blood Cells % 0 % (-); Platelet Count 342 10^3/uL (130-400); Red Blood Cell Count 2.88 10^6/uL (4.70-6.10); Red Cell Dist. Width 18.1 % (11.5-14.5); White Blood Cell Count 5.3 10^3/uL (4.8-10.8)
[2024-02-28 10:12] LABS: ALT (SGPT) 74 U/L (0-50); AST (SGOT) 42 U/L (17-59); Albumin 4.2 g/dl (3.5-5.0); Alkaline Phosphatase 132 U/L (38-126); Blood Urea Nitrogen 25 mg/dl (9-20); Calcium 9.6 mg/dl (8.4-10.2); Carbon Dioxide 28 mmol/L (22-30); Chloride 98 mmol/L (98-107); Glucose 119 mg/dl (70-99); Magnesium 1.5 mg/dl (1.6-2.3); Potassium 4.5 mmol/L (3.5-5.1); Sodium 140 mmol/L (135-145); Total Bilirubin 0.7 mg/dl (0.2-1.3); Total Protein 6.6 g/dl (6.3-8.2); eGFR > 60.00
[2024-02-28 10:37] LABS: TSH Reflex To Free T4 1.33 uIU/ml (0.47-4.68)
== END ==
LOC: REG 07:57
PROVIDERS: ATTENDING PHYSICIAN Internal Medicine Hematology & Oncology; FAMILY PHYSICIAN Family Medicine
DX: C23 Malignant neoplasm of gallbladder (principal)
CPT/HCPCS: 36415; 80053; 83735; 84443; 85025

== ENCOUNTER → 2024-03-13 08:05 | Outpatient (REF) | payer BC, SELFPAY ==
[2024-03-13 08:48] LABS: % Basophils 0.7 % (0-2); % Eosinophils 0.9 % (0-6); % Immature Granulocytes 4.6 % (0-0.5); % Lymphocytes 6.6 % (20.5-51.1); % Monocytes 7.4 % (1.7-9.3); % Neutrophils 79.8 % (42.2-75.2); Absolute Basophils 0.1 10^3/uL (0-0.2); Absolute Eosinophils 0.1 10^3/uL (0-0.7); Absolute Immature Granulocytes 0.6 10^3/uL (0-0.05); Absolute Lymphocytes 0.9 10^3/uL (1.2-3.4); Absolute Neutrophils 11.1 10^3/uL (1.4-6.5); Hematocrit 28.5 % (39.0-52.0); Hemoglobin 9.4 g/dL (13.0-18.0); Mean Corpuscular Hgb 32.2 pg (27.0-31.0); Mean Corpuscular Volume 97.6 fL (80.0-94.0); Mean Platelet Volume 9.8 fL (7.4-10.4); Nucleated Red Blood Cells % 0 % (-); Platelet Count 115 10^3/uL (130-400); Red Blood Cell Count 2.92 10^6/uL (4.70-6.10); Red Cell Dist. Width 22.1 % (11.5-14.5); White Blood Cell Count 13.9 10^3/uL (4.8-10.8)
[2024-03-13 09:25] LABS: ALT (SGPT) 21 U/L (0-50); AST (SGOT) 22 U/L (17-59); Albumin 4.5 g/dl (3.5-5.0); Alkaline Phosphatase 170 U/L (38-126); Blood Urea Nitrogen 21 mg/dl (9-20); Calcium 9.5 mg/dl (8.4-10.2); Carbon Dioxide 26 mmol/L (22-30); Chloride 96 mmol/L (98-107); Glucose 125 mg/dl (70-99); Magnesium 1.3 mg/dl (1.6-2.3); Potassium 4.2 mmol/L (3.5-5.1); Sodium 139 mmol/L (135-145); Total Bilirubin 1.2 mg/dl (0.2-1.3); Total Protein 6.9 g/dl (6.3-8.2); eGFR > 60.00
[2024-03-13 09:48] LABS: TSH Reflex To Free T4 1.97 uIU/ml (0.47-4.68)
[2024-03-13 09:51] LABS: Anisocytosis 1+; Hypochromasia 1+; Normal RBC Morphology No; Polychromasia 1+
== END ==
LOC: REG 08:05
PROVIDERS: ATTENDING PHYSICIAN Internal Medicine Hematology & Oncology; FAMILY PHYSICIAN Family Medicine
DX: C23 Malignant neoplasm of gallbladder (principal)
CPT/HCPCS: 36415; 80053; 83735; 84443; 85025

== ENCOUNTER → 2024-03-20 07:30 | Outpatient (REF) | payer BC, SELFPAY ==
[2024-03-20 08:08] LABS: Hematocrit 31.7 % (39.0-52.0); Hemoglobin 10.1 g/dL (13.0-18.0); Mean Corp Hgb Conc. 31.9 g/dL (33.0-37.0); Mean Corpuscular Hgb 32.1 pg (27.0-31.0); Mean Corpuscular Volume 100.6 fL (80.0-94.0); Mean Platelet Volume 8.4 fL (7.4-10.4); Platelet Count 296 10^3/uL (130-400); Red Blood Cell Count 3.15 10^6/uL (4.70-6.10); Red Cell Dist. Width 20.1 % (11.5-14.5); White Blood Cell Count 11.5 10^3/uL (4.8-10.8)
[2024-03-20 08:41] LABS: % Basophils 1.2 % (0-2); % Eosinophils 1.4 % (0-6); % Immature Granulocytes 5.1 % (0-0.5); % Lymphocytes 10.5 % (20.5-51.1); % Monocytes 8.9 % (1.7-9.3); % Neutrophils 72.9 % (42.2-75.2); Absolute Basophils 0.1 10^3/uL (0-0.2); Absolute Eosinophils 0.2 10^3/uL (0-0.7); Absolute Immature Granulocytes 0.6 10^3/uL (0-0.05); Absolute Lymphocytes 1.2 10^3/uL (1.2-3.4); Absolute Neutrophils 8.4 10^3/uL (1.4-6.5); Nucleated Red Blood Cells % 0 % (-)
[2024-03-20 09:11] LABS: ALT (SGPT) 20 U/L (0-50); AST (SGOT) 30 U/L (17-59); Albumin 4.5 g/dl (3.5-5.0); Alkaline Phosphatase 141 U/L (38-126); Blood Urea Nitrogen 26 mg/dl (9-20); Calcium 9.5 mg/dl (8.4-10.2); Carbon Dioxide 25 mmol/L (22-30); Chloride 100 mmol/L (98-107); Glucose 120 mg/dl (70-99); Magnesium 1.6 mg/dl (1.6-2.3); Potassium 4.5 mmol/L (3.5-5.1); Sodium 139 mmol/L (135-145); Total Bilirubin 0.6 mg/dl (0.2-1.3); Total Protein 6.9 g/dl (6.3-8.2); eGFR > 60.00
[2024-03-20 09:31] LABS: TSH Reflex To Free T4 2.21 uIU/ml (0.47-4.68)
== END ==
LOC: REG 07:30
PROVIDERS: ATTENDING PHYSICIAN Internal Medicine Hematology & Oncology; FAMILY PHYSICIAN Family Medicine
DX: C23 Malignant neoplasm of gallbladder (principal)
CPT/HCPCS: 36415; 80053; 83735; 84443; 85025

== ENCOUNTER → 2024-04-03 07:42 | Outpatient (REF) | payer BC, SELFPAY ==
[2024-04-03 08:29] LABS: % Basophils 0.7 % (0-2); % Eosinophils 1.5 % (0-6); % Immature Granulocytes 1.2 % (0-0.5); % Neutrophils 81.6 % (42.2-75.2); Absolute Basophils 0.1 10^3/uL (0-0.2); Absolute Eosinophils 0.2 10^3/uL (0-0.7); Absolute Immature Granulocytes 0.1 10^3/uL (0-0.05); Absolute Lymphocytes 0.9 10^3/uL (1.2-3.4); Absolute Monocytes 0.6 10^3/uL (0.1-0.6); Absolute Neutrophils 8.4 10^3/uL (1.4-6.5); Hematocrit 33.6 % (39.0-52.0); Hemoglobin 10.8 g/dL (13.0-18.0); Mean Corp Hgb Conc. 32.1 g/dL (33.0-37.0); Mean Corpuscular Hgb 32.8 pg (27.0-31.0); Mean Corpuscular Volume 102.1 fL (80.0-94.0); Mean Platelet Volume 9.6 fL (7.4-10.4); Nucleated Red Blood Cells % 0 % (-); Platelet Count 110 10^3/uL (130-400); Red Blood Cell Count 3.29 10^6/uL (4.70-6.10); Red Cell Dist. Width 17.6 % (11.5-14.5); White Blood Cell Count 10.3 10^3/uL (4.8-10.8)
[2024-04-03 09:12] LABS: ALT (SGPT) 22 U/L (0-50); AST (SGOT) 23 U/L (17-59); Albumin 4.5 g/dl (3.5-5.0); Alkaline Phosphatase 164 U/L (38-126); Blood Urea Nitrogen 28 mg/dl (9-20); Calcium 9.5 mg/dl (8.4-10.2); Carbon Dioxide 28 mmol/L (22-30); Chloride 99 mmol/L (98-107); Glucose 117 mg/dl (70-99); Magnesium 1.6 mg/dl (1.6-2.3); Potassium 3.9 mmol/L (3.5-5.1); Sodium 139 mmol/L (135-145); Total Bilirubin 0.6 mg/dl (0.2-1.3); Total Protein 6.8 g/dl (6.3-8.2); eGFR > 60.00
== END ==
LOC: REG 07:42
PROVIDERS: ATTENDING PHYSICIAN Internal Medicine Hematology & Oncology; FAMILY PHYSICIAN Family Medicine
DX: C23 Malignant neoplasm of gallbladder (principal)
CPT/HCPCS: 36415; 80053; 83735; 84443; 85025

== ENCOUNTER → 2024-04-10 08:12 | Outpatient (REF) | payer BC, SELFPAY ==
[2024-04-10 10:10] LABS: % Basophils 1.1 % (0-2); % Eosinophils 2.4 % (0-6); % Immature Granulocytes 0.2 % (0-0.5); % Lymphocytes 10.4 % (20.5-51.1); % Monocytes 3.1 % (1.7-9.3); % Neutrophils 82.8 % (42.2-75.2); Absolute Basophils 0.1 10^3/uL (0-0.2); Absolute Eosinophils 0.1 10^3/uL (0-0.7); Absolute Lymphocytes 0.5 10^3/uL (1.2-3.4); Absolute Monocytes 0.1 10^3/uL (0.1-0.6); Absolute Neutrophils 3.7 10^3/uL (1.4-6.5); Hematocrit 31.4 % (39.0-52.0); Hemoglobin 10.4 g/dL (13.0-18.0); Mean Corp Hgb Conc. 33.1 g/dL (33.0-37.0); Mean Corpuscular Hgb 32.9 pg (27.0-31.0); Mean Corpuscular Volume 99.4 fL (80.0-94.0); Mean Platelet Volume 9.1 fL (7.4-10.4); Nucleated Red Blood Cells % 0 % (-); Platelet Count 220 10^3/uL (130-400); Red Blood Cell Count 3.16 10^6/uL (4.70-6.10); Red Cell Dist. Width 14.9 % (11.5-14.5); White Blood Cell Count 4.5 10^3/uL (4.8-10.8)
[2024-04-10 10:34] LABS: ALT (SGPT) 46 U/L (0-50); AST (SGOT) 33 U/L (17-59); Albumin 4.5 g/dl (3.5-5.0); Alkaline Phosphatase 121 U/L (38-126); Blood Urea Nitrogen 33 mg/dl (9-20); Calcium 9.5 mg/dl (8.4-10.2); Carbon Dioxide 30 mmol/L (22-30); Chloride 97 mmol/L (98-107); Glucose 115 mg/dl (70-99); Magnesium 1.6 mg/dl (1.6-2.3); Potassium 4.7 mmol/L (3.5-5.1); Sodium 137 mmol/L (135-145); Total Bilirubin 0.8 mg/dl (0.2-1.3); Total Protein 6.8 g/dl (6.3-8.2); eGFR > 60.00
[2024-04-10 11:01] LABS: TSH Reflex To Free T4 2.68 uIU/ml (0.47-4.68)
== END ==
LOC: REG 08:12
PROVIDERS: ATTENDING PHYSICIAN Internal Medicine Hematology & Oncology; FAMILY PHYSICIAN Family Medicine
DX: C23 Malignant neoplasm of gallbladder (principal)
CPT/HCPCS: 36415; 80053; 83735; 84443; 85025

== ENCOUNTER → 2024-04-24 08:39 | Outpatient (REF) | payer BC, SELFPAY ==
[2024-04-24 09:21] LABS: % Basophils 0.3 % (0-2); % Eosinophils 0.7 % (0-6); % Immature Granulocytes 1.5 % (0-0.5); % Lymphocytes 5.8 % (20.5-51.1); % Monocytes 9.2 % (1.7-9.3); % Neutrophils 82.5 % (42.2-75.2); Absolute Eosinophils 0.1 10^3/uL (0-0.7); Absolute Immature Granulocytes 0.2 10^3/uL (0-0.05); Absolute Lymphocytes 0.7 10^3/uL (1.2-3.4); Absolute Monocytes 1.1 10^3/uL (0.1-0.6); Absolute Neutrophils 9.9 10^3/uL (1.4-6.5); Hematocrit 28.6 % (39.0-52.0); Hemoglobin 9.9 g/dL (13.0-18.0); Mean Corp Hgb Conc. 34.6 g/dL (33.0-37.0); Mean Corpuscular Hgb 33.2 pg (27.0-31.0); Nucleated Red Blood Cells % 0 % (-); Platelet Count 118 10^3/uL (130-400); Red Blood Cell Count 2.98 10^6/uL (4.70-6.10); Red Cell Dist. Width 14.7 % (11.5-14.5)
[2024-04-24 10:16] LABS: ALT (SGPT) 22 U/L (0-50); AST (SGOT) 23 U/L (17-59); Albumin 4.3 g/dl (3.5-5.0); Alkaline Phosphatase 134 U/L (38-126); Blood Urea Nitrogen 23 mg/dl (9-20); Calcium 9.1 mg/dl (8.4-10.2); Carbon Dioxide 29 mmol/L (22-30); Chloride 94 mmol/L (98-107); Glucose 128 mg/dl (70-99); Magnesium 1.4 mg/dl (1.6-2.3); Potassium 3.7 mmol/L (3.5-5.1); Sodium 133 mmol/L (135-145); Total Bilirubin 0.9 mg/dl (0.2-1.3); Total Protein 6.6 g/dl (6.3-8.2); eGFR > 60.00
[2024-04-24 10:38] LABS: TSH Reflex To Free T4 2.57 uIU/ml (0.47-4.68)
== END ==
LOC: REG 08:39
PROVIDERS: ATTENDING PHYSICIAN Internal Medicine Hematology & Oncology; FAMILY PHYSICIAN Family Medicine
DX: C23 Malignant neoplasm of gallbladder (principal)
CPT/HCPCS: 36415; 80053; 83735; 84443; 85025

== ENCOUNTER → 2024-05-01 08:38 | Outpatient (REF) | payer BC, SELFPAY ==
[2024-05-01 09:16] LABS: % Basophils 1.1 % (0-2); % Eosinophils 1.1 % (0-6); % Immature Granulocytes 0.6 % (0-0.5); % Lymphocytes 7.9 % (20.5-51.1); % Monocytes 2.2 % (1.7-9.3); % Neutrophils 87.1 % (42.2-75.2); Absolute Basophils 0.1 10^3/uL (0-0.2); Absolute Eosinophils 0.1 10^3/uL (0-0.7); Absolute Lymphocytes 0.5 10^3/uL (1.2-3.4); Absolute Monocytes 0.1 10^3/uL (0.1-0.6); Absolute Neutrophils 5.6 10^3/uL (1.4-6.5); Hematocrit 29.2 % (39.0-52.0); Hemoglobin 10.1 g/dL (13.0-18.0); Mean Corp Hgb Conc. 34.6 g/dL (33.0-37.0); Mean Corpuscular Hgb 33.3 pg (27.0-31.0); Mean Corpuscular Volume 96.4 fL (80.0-94.0); Mean Platelet Volume 8.4 fL (7.4-10.4); Nucleated Red Blood Cells % 0 % (-); Platelet Count 355 10^3/uL (130-400); Red Blood Cell Count 3.03 10^6/uL (4.70-6.10); Red Cell Dist. Width 14.4 % (11.5-14.5); White Blood Cell Count 6.4 10^3/uL (4.8-10.8)
[2024-05-01 10:00] LABS: ALT (SGPT) 82 U/L (0-50); AST (SGOT) 54 U/L (17-59); Albumin 4.2 g/dl (3.5-5.0); Alkaline Phosphatase 117 U/L (38-126); Blood Urea Nitrogen 30 mg/dl (9-20); Calcium 9.3 mg/dl (8.4-10.2); Carbon Dioxide 29 mmol/L (22-30); Chloride 96 mmol/L (98-107); Glucose 121 mg/dl (70-99); Magnesium 1.5 mg/dl (1.6-2.3); Potassium 4.3 mmol/L (3.5-5.1); Sodium 135 mmol/L (135-145); Total Bilirubin 0.6 mg/dl (0.2-1.3); Total Protein 6.5 g/dl (6.3-8.2); eGFR > 60.00
[2024-05-01 10:24] LABS: TSH Reflex To Free T4 1.95 uIU/ml (0.47-4.68)
== END ==
LOC: REG 08:38
PROVIDERS: ATTENDING PHYSICIAN Internal Medicine Hematology & Oncology; FAMILY PHYSICIAN Family Medicine
DX: C23 Malignant neoplasm of gallbladder (principal)
CPT/HCPCS: 36415; 80053; 83735; 84443; 85025

== ENCOUNTER → 2024-05-08 06:49 | Outpatient (REF) | payer BC, SELFPAY ==
[2024-05-08] VITALS (10 sets, daily range): BP systolic 62–142; BP diastolic 72–92
[2024-05-08 08:15] LABS: INR 1.04; PT 13.9 Sec (11.4-14.6)
== END ==
LOC: RADI 06:49
PROVIDERS: Radiology Vascular & Interventional Radiology; ATTENDING PHYSICIAN Internal Medicine Hematology & Oncology; FAMILY PHYSICIAN Family Medicine
DX: C78.7 Secondary malignant neoplasm of liver and intrahepatic bile duct (principal); C23 Malignant neoplasm of gallbladder
CPT/HCPCS: 88307; 47000; 77012; 85610; 99152; 99153

== ENCOUNTER → 2024-05-15 10:05 | Outpatient (REF) | payer BC, SELFPAY ==
[2024-05-15 11:16] LABS: % Basophils 0.4 % (0-2); % Eosinophils 0.2 % (0-6); % Immature Granulocytes 3.7 % (0-0.5); % Lymphocytes 5.3 % (20.5-51.1); % Monocytes 7.6 % (1.7-9.3); % Neutrophils 82.8 % (42.2-75.2); Absolute Basophils 0.1 10^3/uL (0-0.2); Absolute Immature Granulocytes 0.6 10^3/uL (0-0.05); Absolute Lymphocytes 0.9 10^3/uL (1.2-3.4); Absolute Monocytes 1.3 10^3/uL (0.1-0.6); Absolute Neutrophils 14.1 10^3/uL (1.4-6.5); Mean Corp Hgb Conc. 34.5 g/dL (33.0-37.0); Mean Corpuscular Hgb 33.2 pg (27.0-31.0); Mean Corpuscular Volume 96.3 fL (80.0-94.0); Mean Platelet Volume 10.3 fL (7.4-10.4); Nucleated Red Blood Cells % 0.1 % (-); Platelet Count 98 10^3/uL (130-400); Red Blood Cell Count 3.01 10^6/uL (4.70-6.10); Red Cell Dist. Width 17.2 % (11.5-14.5); White Blood Cell Count 17.1 10^3/uL (4.8-10.8)
[2024-05-15 11:42] LABS: ALT (SGPT) 21 U/L (0-50); AST (SGOT) 23 U/L (17-59); Albumin 4.4 g/dl (3.5-5.0); Alkaline Phosphatase 177 U/L (38-126); Blood Urea Nitrogen 25 mg/dl (9-20); Calcium 9.1 mg/dl (8.4-10.2); Carbon Dioxide 28 mmol/L (22-30); Chloride 97 mmol/L (98-107); Glucose 115 mg/dl (70-99); Magnesium 1.3 mg/dl (1.6-2.3); Potassium 3.8 mmol/L (3.5-5.1); Sodium 136 mmol/L (135-145); Total Bilirubin 1.1 mg/dl (0.2-1.3); Total Protein 6.6 g/dl (6.3-8.2); eGFR > 60.00
[2024-05-15 12:04] LABS: TSH Reflex To Free T4 0.91 uIU/ml (0.47-4.68)
== END ==
LOC: REG 10:05
PROVIDERS: ATTENDING PHYSICIAN Internal Medicine Hematology & Oncology; FAMILY PHYSICIAN Family Medicine
DX: C23 Malignant neoplasm of gallbladder (principal)
CPT/HCPCS: 36415; 80053; 83735; 84443; 85025

== ENCOUNTER → 2024-05-22 08:43 | Outpatient (REF) | payer BC, SELFPAY ==
[2024-05-22 09:15] LABS: % Basophils 1.1 % (0-2); % Eosinophils 1.1 % (0-6); % Immature Granulocytes 0.5 % (0-0.5); % Lymphocytes 6.8 % (20.5-51.1); % Neutrophils 88.5 % (42.2-75.2); Absolute Basophils 0.1 10^3/uL (0-0.2); Absolute Eosinophils 0.1 10^3/uL (0-0.7); Absolute Lymphocytes 0.5 10^3/uL (1.2-3.4); Absolute Monocytes 0.1 10^3/uL (0.1-0.6); Absolute Neutrophils 5.8 10^3/uL (1.4-6.5); Hematocrit 29.8 % (39.0-52.0); Hemoglobin 9.8 g/dL (13.0-18.0); Mean Corp Hgb Conc. 32.9 g/dL (33.0-37.0); Mean Corpuscular Hgb 31.7 pg (27.0-31.0); Mean Corpuscular Volume 96.4 fL (80.0-94.0); Mean Platelet Volume 8.4 fL (7.4-10.4); Nucleated Red Blood Cells % 0 % (-); Platelet Count 319 10^3/uL (130-400); Red Blood Cell Count 3.09 10^6/uL (4.70-6.10); Red Cell Dist. Width 15.9 % (11.5-14.5); White Blood Cell Count 6.6 10^3/uL (4.8-10.8)
[2024-05-22 09:48] LABS: ALT (SGPT) 45 U/L (0-50); AST (SGOT) 36 U/L (17-59); Albumin 4.5 g/dl (3.5-5.0); Alkaline Phosphatase 132 U/L (38-126); Blood Urea Nitrogen 36 mg/dl (9-20); Calcium 9.8 mg/dl (8.4-10.2); Carbon Dioxide 28 mmol/L (22-30); Chloride 96 mmol/L (98-107); Glucose 110 mg/dl (70-99); Magnesium 1.6 mg/dl (1.6-2.3); Potassium 4.7 mmol/L (3.5-5.1); Sodium 136 mmol/L (135-145); Total Bilirubin 0.8 mg/dl (0.2-1.3); Total Protein 6.9 g/dl (6.3-8.2); eGFR > 60.00
[2024-05-22 10:18] LABS: TSH Reflex To Free T4 1.66 uIU/ml (0.47-4.68)
== END ==
LOC: REG 08:43
PROVIDERS: ATTENDING PHYSICIAN Internal Medicine Hematology & Oncology
DX: C23 Malignant neoplasm of gallbladder (principal)
CPT/HCPCS: 36415; 80053; 83735; 84443; 85025

== ENCOUNTER → 2024-06-05 07:55 | Outpatient (REF) | payer BC, SELFPAY ==
[2024-06-05 09:18] LABS: % Basophils 0.2 % (0-2); % Eosinophils 0.3 % (0-6); % Immature Granulocytes 2.4 % (0-0.5); % Lymphocytes 6.2 % (20.5-51.1); % Monocytes 9.6 % (1.7-9.3); % Neutrophils 81.3 % (42.2-75.2); Absolute Immature Granulocytes 0.3 10^3/uL (0-0.05); Absolute Lymphocytes 0.8 10^3/uL (1.2-3.4); Absolute Monocytes 1.2 10^3/uL (0.1-0.6); Absolute Neutrophils 10.3 10^3/uL (1.4-6.5); Hematocrit 26.6 % (39.0-52.0); Hemoglobin 9.1 g/dL (13.0-18.0); Mean Corp Hgb Conc. 34.2 g/dL (33.0-37.0); Mean Corpuscular Hgb 33.2 pg (27.0-31.0); Mean Corpuscular Volume 97.1 fL (80.0-94.0); Nucleated Red Blood Cells % 0 % (-); Red Blood Cell Count 2.74 10^6/uL (4.70-6.10); Red Cell Dist. Width 18.9 % (11.5-14.5); White Blood Cell Count 12.7 10^3/uL (4.8-10.8)
[2024-06-05 10:00] LABS: Albumin 4.5 g/dl (3.5-5.0)
[2024-06-05 10:30] LABS: ALT (SGPT) 20 U/L (0-50); AST (SGOT) 23 U/L (17-59); Alkaline Phosphatase 171 U/L (38-126); Blood Urea Nitrogen 23 mg/dl (9-20); Calcium 8.8 mg/dl (8.4-10.2); Carbon Dioxide 24 mmol/L (22-30); Chloride 98 mmol/L (98-107); Glucose 117 mg/dl (70-99); Magnesium 1.5 mg/dl (1.6-2.3); Potassium 3.9 mmol/L (3.5-5.1); Sodium 136 mmol/L (135-145); TSH Reflex To Free T4 1.34 uIU/ml (0.47-4.68); Total Bilirubin 1.3 mg/dl (0.2-1.3); Total Protein 7.2 g/dl (6.3-8.2); eGFR > 60.00
[2024-06-05 12:25] LABS: Mean Platelet Volume 10.1 fL (7.4-10.4)
[2024-06-05 12:28] LABS: Platelet Count 77 10^3/uL (130-400)
== END ==
LOC: REG 07:55
PROVIDERS: ATTENDING PHYSICIAN Internal Medicine Hematology & Oncology; FAMILY PHYSICIAN Family Medicine
DX: C23 Malignant neoplasm of gallbladder (principal)
CPT/HCPCS: 36415; 80053; 83735; 84443; 85025

== ENCOUNTER → 2024-06-13 07:56 | Outpatient (REF) | payer BC, SELFPAY ==
[2024-06-13 09:47] LABS: % Basophils 0.7 % (0-2); % Eosinophils 1.1 % (0-6); % Immature Granulocytes 4.1 % (0-0.5); % Lymphocytes 5.7 % (20.5-51.1); % Monocytes 7.8 % (1.7-9.3); % Neutrophils 80.6 % (42.2-75.2); Absolute Basophils 0.1 10^3/uL (0-0.2); Absolute Eosinophils 0.1 10^3/uL (0-0.7); Absolute Immature Granulocytes 0.5 10^3/uL (0-0.05); Absolute Lymphocytes 0.7 10^3/uL (1.2-3.4); Absolute Monocytes 0.9 10^3/uL (0.1-0.6); Absolute Neutrophils 9.5 10^3/uL (1.4-6.5); Hematocrit 29.2 % (39.0-52.0); Hemoglobin 9.5 g/dL (13.0-18.0); Mean Corp Hgb Conc. 32.5 g/dL (33.0-37.0); Mean Corpuscular Hgb 31.9 pg (27.0-31.0); Mean Platelet Volume 8.4 fL (7.4-10.4); Nucleated Red Blood Cells % 0 % (-); Platelet Count 335 10^3/uL (130-400); Red Blood Cell Count 2.98 10^6/uL (4.70-6.10); Red Cell Dist. Width 17.9 % (11.5-14.5); White Blood Cell Count 11.7 10^3/uL (4.8-10.8)
[2024-06-13 10:15] LABS: ALT (SGPT) 21 U/L (0-50); AST (SGOT) 27 U/L (17-59); Albumin 3.9 g/dl (3.5-5.0); Alkaline Phosphatase 156 U/L (38-126); Blood Urea Nitrogen 26 mg/dl (9-20); Calcium 9.2 mg/dl (8.4-10.2); Carbon Dioxide 25 mmol/L (22-30); Chloride 100 mmol/L (98-107); Glucose 121 mg/dl (70-99); Magnesium 1.4 mg/dl (1.6-2.3); Potassium 4.3 mmol/L (3.5-5.1); Sodium 135 mmol/L (135-145); Total Bilirubin 0.8 mg/dl (0.2-1.3); Total Protein 6.2 g/dl (6.3-8.2); eGFR > 60.00
[2024-06-13 10:28] LABS: TSH Reflex To Free T4 1.24 uIU/ml (0.47-4.68)
== END ==
LOC: REG 07:56
PROVIDERS: ATTENDING PHYSICIAN Internal Medicine Hematology & Oncology; FAMILY PHYSICIAN Family Medicine
DX: C23 Malignant neoplasm of gallbladder (principal)
CPT/HCPCS: 36415; 80053; 83735; 84443; 85025

== ENCOUNTER → 2024-06-19 08:21 | Outpatient (REF) | payer BC, SELFPAY ==
[2024-06-19 09:21] LABS: % Basophils 0.9 % (0-2); % Eosinophils 1.2 % (0-6); % Immature Granulocytes 0.6 % (0-0.5); % Monocytes 2.1 % (1.7-9.3); % Neutrophils 87.2 % (42.2-75.2); Absolute Basophils 0.1 10^3/uL (0-0.2); Absolute Eosinophils 0.1 10^3/uL (0-0.7); Absolute Lymphocytes 0.5 10^3/uL (1.2-3.4); Absolute Monocytes 0.1 10^3/uL (0.1-0.6); Absolute Neutrophils 5.8 10^3/uL (1.4-6.5); Hematocrit 30.7 % (39.0-52.0); Mean Corp Hgb Conc. 32.6 g/dL (33.0-37.0); Mean Corpuscular Hgb 31.8 pg (27.0-31.0); Mean Corpuscular Volume 97.8 fL (80.0-94.0); Nucleated Red Blood Cells % 0 % (-); Platelet Count 284 10^3/uL (130-400); Red Blood Cell Count 3.14 10^6/uL (4.70-6.10); Red Cell Dist. Width 16.9 % (11.5-14.5); White Blood Cell Count 6.6 10^3/uL (4.8-10.8)
[2024-06-19 09:52] LABS: ALT (SGPT) 75 U/L (0-50); AST (SGOT) 54 U/L (17-59); Albumin 4.5 g/dl (3.5-5.0); Alkaline Phosphatase 135 U/L (38-126); Blood Urea Nitrogen 28 mg/dl (9-20); Calcium 9.7 mg/dl (8.4-10.2); Carbon Dioxide 30 mmol/L (22-30); Chloride 96 mmol/L (98-107); Glucose 119 mg/dl (70-99); Magnesium 1.6 mg/dl (1.6-2.3); Sodium 136 mmol/L (135-145); Total Bilirubin 1.4 mg/dl (0.2-1.3); Total Protein 6.7 g/dl (6.3-8.2); eGFR > 60.00
[2024-06-19 10:24] LABS: TSH Reflex To Free T4 1.98 uIU/ml (0.47-4.68)
== END ==
LOC: REG 08:21
PROVIDERS: ATTENDING PHYSICIAN Internal Medicine Hematology & Oncology; FAMILY PHYSICIAN Family Medicine
DX: C23 Malignant neoplasm of gallbladder (principal)
CPT/HCPCS: 36415; 80053; 83735; 84443; 85025

== ENCOUNTER → 2024-07-04 10:17 | Outpatient (REF) | payer BC, SELFPAY ==
[2024-07-04 11:25] LABS: % Basophils 0.5 % (0-2); % Eosinophils 0.9 % (0-6); % Immature Granulocytes 1.9 % (0-0.5); % Lymphocytes 4.9 % (20.5-51.1); % Monocytes 10.7 % (1.7-9.3); % Neutrophils 81.1 % (42.2-75.2); Absolute Basophils 0.1 10^3/uL (0-0.2); Absolute Eosinophils 0.1 10^3/uL (0-0.7); Absolute Immature Granulocytes 0.3 10^3/uL (0-0.05); Absolute Lymphocytes 0.8 10^3/uL (1.2-3.4); Absolute Monocytes 1.7 10^3/uL (0.1-0.6); Absolute Neutrophils 12.6 10^3/uL (1.4-6.5); Hematocrit 25.4 % (39.0-52.0); Hemoglobin 8.5 g/dL (13.0-18.0); Mean Corp Hgb Conc. 33.5 g/dL (33.0-37.0); Mean Corpuscular Hgb 31.8 pg (27.0-31.0); Mean Corpuscular Volume 95.1 fL (80.0-94.0); Mean Platelet Volume 10.4 fL (7.4-10.4); Nucleated Red Blood Cells % 0 % (-); Platelet Count 140 10^3/uL (130-400); Red Blood Cell Count 2.67 10^6/uL (4.70-6.10); Red Cell Dist. Width 18.6 % (11.5-14.5); White Blood Cell Count 15.5 10^3/uL (4.8-10.8)
[2024-07-04 12:13] LABS: ALT (SGPT) 26 U/L (0-50); AST (SGOT) 26 U/L (17-59); Albumin 4.1 g/dl (3.5-5.0); Alkaline Phosphatase 172 U/L (38-126); Blood Urea Nitrogen 23 mg/dl (9-20); Calcium 9.2 mg/dl (8.4-10.2); Carbon Dioxide 27 mmol/L (22-30); Chloride 92 mmol/L (98-107); Glucose 127 mg/dl (70-99); Magnesium 1.4 mg/dl (1.6-2.3); Potassium 3.5 mmol/L (3.5-5.1); Sodium 132 mmol/L (135-145); Total Bilirubin 1.4 mg/dl (0.2-1.3); Total Protein 6.3 g/dl (6.3-8.2); eGFR > 60.00
== END ==
LOC: REG 10:17
PROVIDERS: ATTENDING PHYSICIAN Internal Medicine Hematology & Oncology; FAMILY PHYSICIAN Family Medicine
DX: C23 Malignant neoplasm of gallbladder (principal)
CPT/HCPCS: 36415; 80053; 83735; 84443; 85025

== ENCOUNTER → 2024-07-10 07:30 | Outpatient (REF) | payer BC, SELFPAY ==
[2024-07-10 07:58] LABS: % Basophils 0.6 % (0-2); % Eosinophils 1.2 % (0-6); % Immature Granulocytes 0.5 % (0-0.5); % Lymphocytes 7.4 % (20.5-51.1); % Monocytes 1.9 % (1.7-9.3); % Neutrophils 88.4 % (42.2-75.2); Absolute Basophils 0.1 10^3/uL (0-0.2); Absolute Eosinophils 0.1 10^3/uL (0-0.7); Absolute Lymphocytes 0.6 10^3/uL (1.2-3.4); Absolute Monocytes 0.2 10^3/uL (0.1-0.6); Absolute Neutrophils 6.8 10^3/uL (1.4-6.5); Hematocrit 24.7 % (39.0-52.0); Hemoglobin 8.2 g/dL (13.0-18.0); Mean Corp Hgb Conc. 33.2 g/dL (33.0-37.0); Mean Corpuscular Hgb 31.7 pg (27.0-31.0); Mean Corpuscular Volume 95.4 fL (80.0-94.0); Mean Platelet Volume 8.6 fL (7.4-10.4); Nucleated Red Blood Cells % 0 % (-); Platelet Count 315 10^3/uL (130-400); Red Blood Cell Count 2.59 10^6/uL (4.70-6.10); Red Cell Dist. Width 17.8 % (11.5-14.5); White Blood Cell Count 7.7 10^3/uL (4.8-10.8)
[2024-07-10 08:25] LABS: ALT (SGPT) 108 U/L (0-50); AST (SGOT) 65 U/L (17-59); Albumin 4.1 g/dl (3.5-5.0); Alkaline Phosphatase 179 U/L (38-126); Blood Urea Nitrogen 25 mg/dl (9-20); Calcium 9.4 mg/dl (8.4-10.2); Carbon Dioxide 27 mmol/L (22-30); Chloride 96 mmol/L (98-107); Glucose 120 mg/dl (70-99); Magnesium 1.6 mg/dl (1.6-2.3); Potassium 4.1 mmol/L (3.5-5.1); Sodium 134 mmol/L (135-145); Total Protein 6.2 g/dl (6.3-8.2); eGFR > 60.00
[2024-07-10 08:53] LABS: TSH Reflex To Free T4 1.76 uIU/ml (0.47-4.68)
== END ==
LOC: REG 07:30
PROVIDERS: ATTENDING PHYSICIAN Internal Medicine Hematology & Oncology; FAMILY PHYSICIAN Family Medicine
DX: C23 Malignant neoplasm of gallbladder (principal)
CPT/HCPCS: 36415; 80053; 83735; 84443; 85025

== ENCOUNTER → 2024-07-24 09:14 | Outpatient (REF) | payer BC, SELFPAY ==
[2024-07-24 10:15] LABS: % Basophils 0.4 % (0-2); % Eosinophils 0.3 % (0-6); % Immature Granulocytes 4.7 % (0-0.5); % Monocytes 10.8 % (1.7-9.3); % Neutrophils 78.8 % (42.2-75.2); Absolute Basophils 0.1 10^3/uL (0-0.2); Absolute Eosinophils 0.1 10^3/uL (0-0.7); Absolute Immature Granulocytes 0.9 10^3/uL (0-0.05); Absolute Lymphocytes 0.9 10^3/uL (1.2-3.4); Absolute Neutrophils 14.2 10^3/uL (1.4-6.5); Hematocrit 24.8 % (39.0-52.0); Hemoglobin 8.2 g/dL (13.0-18.0); Mean Corp Hgb Conc. 33.1 g/dL (33.0-37.0); Mean Corpuscular Hgb 32.4 pg (27.0-31.0); Nucleated Red Blood Cells % 0.2 % (-); Red Blood Cell Count 2.53 10^6/uL (4.70-6.10); Red Cell Dist. Width 21.4 % (11.5-14.5); White Blood Cell Count 18.1 10^3/uL (4.8-10.8)
[2024-07-24 10:37] LABS: Mean Platelet Volume 10.8 fL (7.4-10.4); Platelet Count 83 10^3/uL (130-400)
[2024-07-24 12:42] LABS: TSH Reflex To Free T4 1.41 uIU/ml (0.47-4.68)
[2024-07-24 14:01] LABS: ALT (SGPT) 23 U/L (0-50); AST (SGOT) 26 U/L (17-59); Albumin 4.5 g/dl (3.5-5.0); Alkaline Phosphatase 221 U/L (38-126); Blood Urea Nitrogen 22 mg/dl (9-20); Calcium 9.4 mg/dl (8.4-10.2); Carbon Dioxide 28 mmol/L (22-30); Chloride 95 mmol/L (98-107); Glucose 127 mg/dl (70-99); Magnesium 1.5 mg/dl (1.6-2.3); Potassium 4.5 mmol/L (3.5-5.1); Sodium 135 mmol/L (135-145); Total Bilirubin 1.4 mg/dl (0.2-1.3); Total Protein 6.7 g/dl (6.3-8.2); eGFR > 60.00
== END ==
LOC: REG 09:14
PROVIDERS: ATTENDING PHYSICIAN Internal Medicine Hematology & Oncology; FAMILY PHYSICIAN Family Medicine
DX: C23 Malignant neoplasm of gallbladder (principal)
CPT/HCPCS: 36415; 80053; 83735; 84443; 85025

== ENCOUNTER → 2024-08-14 07:18 | Outpatient (REF) | payer BC, SELFPAY ==
[2024-08-14 07:58] LABS: % Basophils 1.2 % (0-2); % Eosinophils 2.2 % (0-6); % Immature Granulocytes 0.5 % (0-0.5); % Lymphocytes 9.6 % (20.5-51.1); % Monocytes 9.4 % (1.7-9.3); % Neutrophils 77.1 % (42.2-75.2); Absolute Basophils 0.1 10^3/uL (0-0.2); Absolute Eosinophils 0.2 10^3/uL (0-0.7); Absolute Immature Granulocytes 0.1 10^3/uL (0-0.05); Absolute Neutrophils 8.1 10^3/uL (1.4-6.5); Hematocrit 34.6 % (39.0-52.0); Hemoglobin 11.5 g/dL (13.0-18.0); Mean Corp Hgb Conc. 33.2 g/dL (33.0-37.0); Mean Corpuscular Hgb 31.8 pg (27.0-31.0); Mean Corpuscular Volume 95.6 fL (80.0-94.0); Mean Platelet Volume 9.3 fL (7.4-10.4); Nucleated Red Blood Cells % 0 % (-); Platelet Count 210 10^3/uL (130-400); Red Blood Cell Count 3.62 10^6/uL (4.70-6.10); Red Cell Dist. Width 16.8 % (11.5-14.5); White Blood Cell Count 10.4 10^3/uL (4.8-10.8)
[2024-08-14 07:59] LABS: Urine Albumin 1+ (Neg - Trace); Urine Bilirubin Negative (Negative); Urine Character Clear (Clear); Urine Color Yellow; Urine Glucose Negative (Negative); Urine Ketone Negative (Negative); Urine Leukocyte Negative (Negative); Urine Nitrite Negative (Negative); Urine Occult Blood 1+ (Negative); Urine Specific Gravity 1.015 (<1.030); Urine Urobilinogen Negative (Neg - 1+)
[2024-08-14 08:16] LABS: Urine Bacteria Few (Negative); Urine Hyaline Cast >15 /LPF (0-2)
[2024-08-14 08:17] LABS: Urine Red Blood Cell 0-2 /HPF (0-2)
[2024-08-14 09:01] LABS: ALT (SGPT) 32 U/L (0-50); AST (SGOT) 44 U/L (17-59); Albumin 4.7 g/dl (3.5-5.0); Alkaline Phosphatase 254 U/L (38-126); Blood Urea Nitrogen 19 mg/dl (9-20); Calcium 9.9 mg/dl (8.4-10.2); Carbon Dioxide 26 mmol/L (22-30); Chloride 100 mmol/L (98-107); Glucose 117 mg/dl (70-99); Iron 69 ug/dl (49-181); Potassium 4.2 mmol/L (3.5-5.1); Sodium 138 mmol/L (135-145); Total Bilirubin 1.1 mg/dl (0.2-1.3); Total Protein 7.1 g/dl (6.3-8.2); eGFR > 60.00
[2024-08-14 09:07] LABS: Glycohemoglobin (HgbA1c) 4.4 % (4.0-5.6)
[2024-08-14 09:10] LABS: Percent Saturation 22 % (20-50); Total Iron Binding Capacity 309 ug/dl (261-462)
[2024-08-14 10:40] LABS: PSA, Total - Screen 0.53 ng/ml (0.0-4.0)
[2024-08-14 15:25] LABS: Urine Squamous Cell 0-2 /LPF (Few)
== END ==
LOC: REG 07:18
PROVIDERS: ATTENDING PHYSICIAN Internal Medicine Hematology & Oncology; FAMILY PHYSICIAN Family Medicine
DX: C23 Malignant neoplasm of gallbladder (principal); E61.1 Iron deficiency; Z12.5 Encounter for screening for malignant neoplasm of prostate; I10 Essential (primary) hypertension; R73.09 Other abnormal glucose
CPT/HCPCS: 36415; 80053; 81003; 81015; 82728; 83036; 83540; 83550; 84550; 85025; G0103

== ENCOUNTER → 2024-08-30 09:11 | Outpatient (REF) | payer BC, SELFPAY ==
[2024-08-30 09:26] LABS: % Basophils 0.5 % (0-2); % Immature Granulocytes 0.1 % (0-0.5); % Lymphocytes 6.2 % (20.5-51.1); % Monocytes 9.8 % (1.7-9.3); % Neutrophils 81.4 % (42.2-75.2); Absolute Eosinophils 0.2 10^3/uL (0-0.7); Absolute Lymphocytes 0.5 10^3/uL (1.2-3.4); Absolute Monocytes 0.9 10^3/uL (0.1-0.6); Hematocrit 33.6 % (39.0-52.0); Hemoglobin 11.4 g/dL (13.0-18.0); Mean Corp Hgb Conc. 33.9 g/dL (33.0-37.0); Mean Corpuscular Hgb 31.1 pg (27.0-31.0); Mean Corpuscular Volume 91.6 fL (80.0-94.0); Mean Platelet Volume 8.5 fL (7.4-10.4); Platelet Count 164 10^3/uL (130-400); Red Blood Cell Count 3.67 10^6/uL (4.70-6.10); Red Cell Dist. Width 13.9 % (11.5-14.5); White Blood Cell Count 8.7 10^3/uL (4.8-10.8)
[2024-08-30 10:23] LABS: ALT (SGPT) 182 U/L (0-50); AST (SGOT) 175 U/L (17-59); Albumin 4.2 g/dl (3.5-5.0); Alkaline Phosphatase 501 U/L (38-126); Blood Urea Nitrogen 17 mg/dl (9-20); Calcium 9.3 mg/dl (8.4-10.2); Carbon Dioxide 28 mmol/L (22-30); Chloride 96 mmol/L (98-107); Glucose 119 mg/dl (70-99); Potassium 3.4 mmol/L (3.5-5.1); Sodium 136 mmol/L (135-145); Total Bilirubin 6.3 mg/dl (0.2-1.3); Total Protein 6.7 g/dl (6.3-8.2); eGFR > 60.00
== END ==
LOC: OIDL 09:11
PROVIDERS: ATTENDING PHYSICIAN Internal Medicine Hematology & Oncology
DX: C23 Malignant neoplasm of gallbladder (principal)
CPT/HCPCS: 80053; 85025

== ENCOUNTER 2024-09-06 18:08 | Inpatient (IN) | payer BC, SELFPAY ==
[2024-09-06 14:40] VITALS: BP 113/75
[2024-09-06 14:55] LABS: % Basophils 0.2 % (0-2); % Eosinophils 1.8 % (0-6); % Immature Granulocytes 0.7 % (0-0.5); % Lymphocytes 1.9 % (20.5-51.1); % Monocytes 7.8 % (1.7-9.3); % Neutrophils 87.6 % (42.2-75.2); Absolute Eosinophils 0.2 10^3/uL (0-0.7); Absolute Immature Granulocytes 0.1 10^3/uL (0-0.05); Absolute Lymphocytes 0.2 10^3/uL (1.2-3.4); Absolute Neutrophils 10.7 10^3/uL (1.4-6.5); Hematocrit 35.3 % (39.0-52.0); Hemoglobin 12.3 g/dL (13.0-18.0); Mean Corp Hgb Conc. 34.8 g/dL (33.0-37.0); Mean Corpuscular Volume 88.9 fL (80.0-94.0); Mean Platelet Volume 8.8 fL (7.4-10.4); Nucleated Red Blood Cells % 0 % (-); Platelet Count 193 10^3/uL (130-400); Red Blood Cell Count 3.97 10^6/uL (4.70-6.10); Red Cell Dist. Width 15.1 % (11.5-14.5); White Blood Cell Count 12.2 10^3/uL (4.8-10.8)
[2024-09-06 15:53] LABS: ALT (SGPT) 192 U/L (0-50); AST (SGOT) 237 U/L (17-59); Albumin 3.8 g/dl (3.5-5.0); Alkaline Phosphatase 700 U/L (38-126); Blood Urea Nitrogen 25 mg/dl (9-20); Calcium 9.6 mg/dl (8.4-10.2); Carbon Dioxide 29 mmol/L (22-30); Chloride 88 mmol/L (98-107); Glucose 129 mg/dl (70-99); Lipase 30 U/L (23-300); Potassium 3.8 mmol/L (3.5-5.1); Sodium 127 mmol/L (135-145); Total Bilirubin 33.3 mg/dl (0.2-1.3); Total Protein 6.9 g/dl (6.3-8.2); eGFR 51.67
--- NOTE | 2024-09-06 16:56 | ED.GENMED ---
History of Present Illness
General
Chief Complaint: Abdominal Pain
Source: patient, spouse and family (daughter)
Exam Limitations: none
Time Seen by Provider: 09/06/24 16:23
Nursing documentation reviewed up to this point in time: agreed with
History of Present Illness
History of Present Illness:
Patient sent to ED by Dr. Livingstno for increasing abdominal pain, poor appetite, jaundice. 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 He reports he just completed an 18 week course and has 2 doses of
Keytruda. Do to start 'new' chemo next week. States he had an abdominal MRI at the end of August (not here) and was told liver mass is enlarging. Reports 2 weeks ago he noticed pain after eating and pain continues to increase. Family states he is
eating very little at this time. To ED accompainied by spouse and daughter.
Past History
Past History
ED Past Medical History: HTN and Other (Gout)
ED Past Surgical History: None
Social History
Tobacco: Non-smoker
Alcohol: Occasional
Drug: None
Living: with family
Employment: Employed
Review of Systems
Review of Systems
Allergies reviewed?: Yes
All Other Systems: ROS reviewed and negative except as documented in HPI and ROS
Constitutional: Reports no symptoms
EENT: Reports no symptoms
Respiratory: Reports no symptoms
Cardiac: Reports no symptoms
ABD/GI: Reports abdominal pain (upper abd. pain)
: Reports dark urine
Musculoskeletal: Reports no symptoms
Skin: Reports other (jaundice)
Neurological: Reports no symptoms
Psychiatric: Reports no symptoms
Phy Exam
General Physical Exam
General Presentation: moderate distress
General age: appears stated age
General Skin: warm, dry and other (jaundice)
General Habitus: normal
General Mental: alert
General Hydration: dry mucous membranes
Cardiovascular Exam
Cardiovascular Exam: regular rate/rhythm
Gastrointestinal Exam
Gastrointestinal Exam: normal bowel sounds, soft, no organomegaly, no pulsatile mass and non distended
Palpation: left upper quadrant: Moderate tenderness, left lower quadrant: Minimal tenderness, right upper quadrant: Moderate tenderness and right lower quadrant: Minimal tenderness
Neurological Exam
Neurological Exam: alert, oriented x3, no motor deficits, no sensory deficits and speech normal
Musculoskeletal Exam
Musculoskeletal Exam: full ROM and neuro vasc intact
Skin Exam
Skin Exam: jaundice
Psychiatric Exam
Psychiatric Exam: normal mood/affect
Course
Orders/Labs/Results
Orders:
Orders
09/06/24 Breakfast
Clear Liquid
At Your Request: Full Participation
09/06/24 14:47
Complete Blood Count/With Diff Urgent
Comprehensive Metabolic Panel Urgent
Lipase Urgent
09/06/24 16:56
0.9% Sodium Chloride 1000 ml [Nss] 1,000 ml IV BOLUS
09/06/24 17:12
MR Mrcp Without Urgent
Comment:
Reason For Exam: obstructive jaundice
OK for patient to be off Cardiac Monitoring for MRI: Yes
Recent pill cam endoscopy?: No
Pacemaker/Defibrillator?: No
Brain Aneurysm Clips?: No
Have you ever worked with metal? grinding metal? welding?: No
Cochlear(ear) implants?: No
Does Pt have a Temp Sensing Cath?: No
Does the patient have IV access?: Yes
Does the patient have any stents?: No
MRI Abdomen [MR Abdomen W/o & W Contrast] Urgent
Comment:
Reason For Exam: obstructive jaundice, Tbili 33.3
OK for patient to be off Cardiac Monitoring for MRI: Yes
Recent pill cam endoscopy?: No
09/06/24 17:16
Consult Gastroenterology [GASTROINTESTINAL CONSULT] Urgent
Consulting Provider: Tomas Reyna
Was physician already notified: Yes
ONCOLOGY CONSULT Urgent
Consulting Provider: Willy Posey
Was physician already notified: Yes
09/06/24 17:35
Admit/Transfer Patient As Directed
Co-Sign Provider:
Level of Care: Inpatient admission
Assign to:: Medical/Surgical
Physician / Group: jasson
Diagnosis: obstructive Jaundice
Reason for Hospitalization: obstructive jaundice
Expected length of stay greater than two midnights?: Yes
ELOS- Estimated Length of Stay in days: 3
I certify the patient meets the requirements for IP care: Yes
09/06/24 17:36
PRN Pain Medication Management As Directed
May give lesser potent ordered pain med per pt: Yes
preference::
Protocol:: Medication orders for pain may be administered in a
manner that supports deferring to patient preference
when the pt is:
- Requesting an ordered lesser potent pain medication.
Least to most potent pain medications are defined
as: acetaminophen < NSAID < tramadol < opioids
(morphine, oxycodone, hydromorphone).
- Requesting a lesser dose of the same medication IF
ORDERED.
- Requesting a less intrusive route of administration
if both routes are prescribed by the provider (PO <
IV).
09/06/24 17:37
Code Status As Directed
Resuscitation Status: Full Code
09/06/24 21:07
0.9% Sodium Chloride 1000 ml [Nss] 1,000 ml IV 80 mls/hr
Amlodipine [Norvasc] 5 mg PO QPM
Bisacodyl [Dulcolax] 10 mg RECTAL [id number] PRN
Docusate W/Senna [Senokot-S] 1 tablet PO BIDPRN PRN
Heparin 5,000 units SC Q12
Polyethylene Glycol Powder [Miralax] 17 grams PO DAILYPRN PRN
09/06/24 21:07
Activity As Directed
Activity Level: As Tolerated
Vital Signs As Directed
Frequency: Per unit guidelines
DX Deep Vein Thrombosis Video Routine
09/07/24 03:28
Complete Blood Count/No Diff IN AM
Comprehensive Metabolic Panel IN AM
Magnesium IN AM
09/07/24 08:00
Allopurinol [Zyloprim] 100 mg PO DAILY
Aspirin Chewable [Low Strength Aspirin] 81 mg PO DAILY
Atenolol [Tenormin] 25 mg PO DAILY
09/08/24 06:00
Complete Blood Count/No Diff IN AM
Comprehensive Metabolic Panel IN AM
09/09/24 06:00
Complete Blood Count/No Diff IN AM
Comprehensive Metabolic Panel IN AM
09/10/24 06:00
Complete Blood Count/No Diff IN AM
Comprehensive Metabolic Panel IN AM
09/11/24 06:00
Comprehensive Metabolic Panel IN AM
Abnormal Lab Results
09/06/24
14:47
WBC 12.2 H 10^3/uL
(4.8-10.8)
RBC 3.97 L 10^6/uL
(4.70-6.10)
Hgb 12.3 L g/dL
(13.0-18.0)
Hct 35.3 L %
(39.0-52.0)
RDW 15.1 H %
(11.5-14.5)
Abs Immat Gran (auto) 0.1 H 10^3/uL
(0-0.05)
Absolute Neuts (auto) 10.7 H 10^3/uL
(1.4-6.5)
Absolute Lymphs (auto) 0.2 L 10^3/uL
(1.2-3.4)
Absolute Monos (auto) 1.0 H 10^3/uL
(0.1-0.6)
Immature Gran % 0.7 H %
(0-0.5)
Neutrophils % 87.6 H %
(42.2-75.2)
Lymphocytes % 1.9 L %
(20.5-51.1)
Sodium 127 L mmol/L
(135-145)
Chloride 88 L mmol/L
(98-107)
BUN 25 H mg/dl
(9-20)
Creatinine 1.5 H mg/dL
(0.7-1.3)
Glucose 129 H mg/dl
(70-99)
Total Bilirubin 33.3 H* mg/dl
(0.2-1.3)
AST 237 H U/L
(17-59)
ALT 192 H U/L
(0-50)
Alkaline Phosphatase 700 H U/L
(38-126)
09/06/24 14:47
09/06/24 14:47
Vital Signs
Initial and Last Documented VS:
Initial Vital Signs
Temp Pulse Resp BP Pulse Ox
99.1 F 84 18 113/75 99
09/06/24 14:40 09/06/24 14:40 09/06/24 14:40 09/06/24 14:40 09/06/24 14:40
Last Documented Vital Signs
Temp Pulse Resp BP Pulse Ox
99.5 F 88 16 116/63 96
09/07/24 08:08 09/07/24 08:08 09/07/24 08:08 09/07/24 08:08 09/07/24 08:08
*Critical Care Note
Total Time (30-74mins, 75-104mins- exclusive of procedures): Not Applicable
Update Note
Update Note:
Patient with known history of gallbladder CA with liver mets, receiving treatment through [facility]. Developed worsening abd. pain x 2 weeks, now jaundice. Labs reviewed. WBC 12.2, Tbili 33.3, AST 237, ALT 192, Alk phos 700. Dr. Reyna notified
of patient presentation and labs. Requests MRI/MRCP. Will admit to hospitalist service.
ED Attending Note
-
Portions of this chart may have been created with voice recognition software.� Occasional wrong word or��sound alike� substitutions may have occurred due to the inherent limitations of voice recognition software.
Discharge Plan
Departure
Patient Disposition: Admit
Date of Disposition: 09/06/24
Time of Disposition: 17:09
Presentation/result/management discussed w/ accepting MD/DO: Hospitalist
Patient with high blood pressure during this ER visit?: No
Condition: Fair
Discharge Problem:
Obstructive jaundice
Interventions
Interventions:
*Risk Screen - Suicide Last Done: 09/06/24 14:40
*General Assessment Last Done: 09/06/24 14:40
*Neglect/Abuse Screening Last Done: 09/06/24 14:40
*Nursing Disposition Last Done: 09/06/24 21:03
OK-Uwhwny-Dcbvmvwqwl Assessment Last Done: 09/06/24 16:42
Discharge Date and Time
Discharge Date/Time: 09/06/24 21:04
[2024-09-06] MEDS: NSS 1000 IV ×3 (17:08→22:50)
--- NOTE | 2024-09-06 17:15 | HPS.HSE ---
Family Physician
-
Family Physician: Marc Walls
Chief Complaint
-
abdominal pain
History of Present Illness
Next a 3-year-old with past medical history for gallbladder carcinoma, hypertension, gout presented to us with mid abdomen cramps pain for the past 7 to 8 days . Patient felt bloated after eating or drinking . Patient complaining of poor appetite
denied nausea or vomiting . He was complaining of light-colored stools and dark-colored urine . Patient denied fever, chills, headache, dizzy. Patient denied chest pain or short of breath. Patient denied any dysuria hematuria .
patient finished the course of chemo in August . He was getting IV Keytruda. He was supposed to get his third dose tomorrow. Plan for chemo next week.
Patient is getting admitted for further management
Medical History
Past Medical History
Past Medical History: Reports Other
Additional Past Medical History:
Hypertension, gout, hyperlipidemia, IgM deficiency, hemochromatosis gallstone
Past Surgical History: Reports Other
Additional Past Surgical History:
Appendectomy, bilateral hernia repair with mesh, lap cholecystectomy
Social History
Tobacco: Non-smoker
Alcohol: None
Drug: None
Personal:
Living: With Family
Family History
Family History: Not pertinent
Allergies / Home Medications
Allergies reflects when Allergies were last updated in [employer].
Home Medications with original date entered in [employer]
Allergy/Medication List:
Allergies
Allergy/AdvReac Type Severity Reaction Status Date / Time
Penicillins Allergy many years Verified 09/06/24 14:40
ago (')
Home Medications
Saccharomyces boulardii 250 mg capsule (Florastor) 250 mg PO DAILY 03/23/19
amlodipine 5 mg tablet 5 mg PO QPM 03/23/19
atenolol 25 mg tablet 25 mg PO DAILY 03/23/19
allopurinol 100 mg tablet 100 mg PO DAILY 09/22/22
losartan 100 mg-hydrochlorothiazide 25 mg tablet 1 tab PO QPM 09/22/22
aspirin 81 mg tablet 81 mg PO DAILY 12/21/22
lorazepam 0.5 mg tablet (Ativan) 0.5 mg PO HS PRN anxiety 12/21/22
magnesium 250 mg tablet 500 mg PO HS 05/08/24
Review of Systems
-
Constitutional: Reports No Symptoms
EENT: Reports No Symptoms
Respiratory: Reports No Symptoms
Cardiac: Reports No Symptoms
Abdomen/GI: Reports Abdominal Pain and Other (Light-colored stool, bloated abdomen)
: Reports Dark Urine
Musculoskeletal: Reports No Symptoms
Skin: Reports No Symptoms and Other (Jaundice)
Neurological: Reports No Symptoms
Endocrine: Reports No Symptoms
Hematologic/Lymphatic: Reports No Symptoms
Psych: Reports No Symptoms
Physical Exam
Vital Signs
Vital Signs
Temp Pulse Resp BP Pulse Ox
99.1 F 84 18 113/75 99
09/06/24 14:40 09/06/24 14:40 09/06/24 14:40 09/06/24 14:40 09/06/24 14:40
Physical Exam
General: Well Developed, Well Nourished and No Apparent Distress
HEENT: NormoCephalic, Moist mucous membranes and Atraumatic
Respiratory: Clear
Cardiac: S1/S2 and Regular Rhythm; No Murmur or Rub
GI: Soft, Non Tender, Non Distended and Normal Bowel Sounds; No Organomegaly
Rectal: Deferred by Provider
Musculoskeletal: No Clubbing, No Cyanosis and No Edema
Skin: Other (Jaundiced)
Neuro: AO x 3 and Nonfocal/grossly intact
Psych: Calm
Laboratory Results
-
09/06/24 14:47
09/06/24 14:47
Laboratory Results
Total Bilirubin 33.3 mg/dl (0.2-1.3) H* 09/06/24 14:47
AST 237 U/L (17-59) H 09/06/24 14:47
ALT 192 U/L (0-50) H 09/06/24 14:47
Alkaline Phosphatase 700 U/L (38-126) H 09/06/24 14:47
Lipase 30 U/L (23-300) 09/06/24 14:47
Data Reviewed
-
Lab Data: Labs Reviewed by me
Impression/Plan
-
# Abdominal pain/poor appetite, jaundice likely obstructive jaundice
#History of gallbladder cancer mets to liver
- On chemo
-Clear liquid diet
- GI consult
- Plan for MRI at [facility]
- T. bili 33.3, AST 237, ALT 192, alk phos 700
-Oncology consulted
# Leukocytosis likely from Keytruda
- WBC 12.0, patient is afebrile
- Continue to monitor
# Anemia of chronic disease
- Hemoglobin stable at 12.3
- No active bleeding
# Hyponatremia/acute kidney injury likely dehydration
- Sodium 127, creatinine 1.5
- Continue to monitor
# Gout
- Allopurinol continued
# Hypertension
- Norvasc, atenolol continued
- Hold losartan/HCTZ
# DVT prophylaxis
- Heparin subcu
# CODE STATUS
- Full code
--- NOTE | 2024-09-06 17:48 | W.PN.UPDATE ---
Update Note
Progress Note Update
This is an addendum to H&P written by Adenike Avila on 09/06/2024.� Patient seen examined independently with BENZOL OPERATOR.
63-year-old male past medical history of gallbladder carcinoma diagnosed in 2022 status post cholecystectomy with 3 liver metastases completed chemotherapy with cisplatin/gemcitabine, currently on Keytruda, hypertension, gout, presenting with
abdominal pain poor appetite and jaundice, light stool, dark urine.� Had abdominal MRI end of August and told one of the liver masses was enlarging.
Vital signs normal.
Labs show sodium of 127, creatinine 1.5, total bilirubin of 33, stable transaminitis.� Leukocytosis.
Patient with concern for worsening intrahepatic biliary obstruction secondary to enlarging hepatic metastases.� Patient with hyponatremia secondary to poor solute intake, ALEX is likely prerenal.
Clear liquid diet, IV fluids, GI and oncology consulted.� GI recommended MRI/MRCP.� Hold losartan/hydrochlorothiazide.
[2024-09-06 21:15] VITALS: BP 151/85; BMI 27.5
[2024-09-06] MEDS: HEPARIN 5000 UNITS SC (21:21)
[2024-09-06] MEDS: NORVASC 5 MG PO (21:21)
[2024-09-06] MEDS: TYLENOL 650 MG PO (21:43)
[2024-09-06] MEDS: ATIVAN 0.5 MG PO (22:07)
[2024-09-06 22:38] LABS: Urine Albumin 2+ (Neg - Trace); Urine Bilirubin 3+ (Negative); Urine Character Clear (Clear); Urine Color Amber; Urine Glucose Negative (Negative); Urine Ketone 1+ (Negative); Urine Leukocyte 1+ (Negative); Urine Nitrite Positive (Negative); Urine Occult Blood 2+ (Negative); Urine Specific Gravity 1.015 (<1.030); Urine Urobilinogen 4+ (Neg - 1+)
[2024-09-06 22:50] LABS: Lactic Acid 2.2 mmol/L (0.7-2.0)
[2024-09-06 23:00] LABS: Urine Red Blood Cell 0-2 /HPF (0-2); Urine Squamous Cell 0-2 /LPF (Few); Urine White Cell 30-40 /HPF (0-5)
[2024-09-06 23:01] LABS: Urine Granular Cast 0-2 /LPF (0); Urine Mucus Few
[2024-09-06 23:02] LABS: Urine Bacteria Moderate (Negative)
[2024-09-06] MEDS: MAXIPIME 1000 MG IV (23:13)
[2024-09-06] MEDS: STERILE WATER FOR INJECTION 10 ML IV (23:13)
[2024-09-06 23:22] VITALS: BP 108/60
--- NOTE | 2024-09-06 23:30 | PTCARENOTE ---
Received pt from ED at 21:15. His temp was 102.8, House Provider, Essence Rivas, notified. 650mg tylenol administered. BC x2 and lactic drawn. Lactic= 2.2, next to be drawn at 03:30. Received orders for IV cefepime and IV flagyl.
Pt and pt's family request that any updates/plan of care be given to pt's daughter, Raysa Fairbanks ([phone]), and not directly to the patient. Will pass along to dayshift.
[2024-09-06] MEDS: FLAGYL 500 MG 100 IV (23:52)
[2024-09-07] VITALS (8 sets, daily range): BP systolic 93–116; BP diastolic 56–68; BMI 27.5
--- NOTE | 2024-09-07 00:02 | W.PN.UPDATE ---
Update Note
Progress Note Update
RN contacted this SENIOR MECHANICAL PROJECT ENGINEER to make aware that the patient had a 102.8 F oral temp upon admission. No elevated temps noted in the ER. WBCs 12.2 on Keytruda. No cough, sob or wheezing noted. orders placed for blood cultures, UA, lactic acid, 1000ml NSS
bolus and x1 dose of Tylenol given (T. bili 33.3, AST 237, ALT 192, alk phos 700). Discussed with Dr. Dasilva about about empiric antibiotic- pt has a know PCN allergy (rash) when he was younger. Cefepime and Flagyl ordered per Dr. Dasilva request in place of
Zosyn. Repeat lactic @ 0327: 2.9- 500ml bolus added- and repleting K and Mag.�
[2024-09-07 03:39] LABS: Hematocrit 30.3 % (39.0-52.0); Hemoglobin 10.8 g/dL (13.0-18.0); Mean Corp Hgb Conc. 35.6 g/dL (33.0-37.0); Mean Corpuscular Hgb 31.6 pg (27.0-31.0); Mean Corpuscular Volume 88.6 fL (80.0-94.0); Platelet Count 161 10^3/uL (130-400); Red Blood Cell Count 3.42 10^6/uL (4.70-6.10); Red Cell Dist. Width 15.1 % (11.5-14.5); White Blood Cell Count 10.9 10^3/uL (4.8-10.8)
[2024-09-07 04:01] LABS: Lactic Acid 2.9 mmol/L (0.7-2.0)
[2024-09-07 04:16] LABS: ALT (SGPT) 145 U/L (0-50); AST (SGOT) 171 U/L (17-59); Albumin 3.1 g/dl (3.5-5.0); Alkaline Phosphatase 586 U/L (38-126); Blood Urea Nitrogen 26 mg/dl (9-20); Calcium 8.7 mg/dl (8.4-10.2); Carbon Dioxide 25 mmol/L (22-30); Chloride 95 mmol/L (98-107); Estimated Creatinine Clearance 67 ml/min; Glucose 103 mg/dl (70-99); Magnesium 1.5 mg/dl (1.6-2.3); Potassium 3.5 mmol/L (3.5-5.1); Sodium 129 mmol/L (135-145); Total Protein 5.8 g/dl (6.3-8.2); eGFR > 60.00
[2024-09-07 04:26] LABS: Total Bilirubin 30.6 mg/dl (0.2-1.3)
[2024-09-07] MEDS: STERILE WATER FOR INJECTION 10 ML IV ×4 (05:21→22:58)
[2024-09-07] MEDS: MAXIPIME 1000 MG IV ×4 (05:21→22:58)
[2024-09-07] MEDS: KCL 40 MEQ PO (05:22)
[2024-09-07] MEDS: MAGNESIUM SULFATE 102 GRAMS IV (05:28)
--- NOTE | 2024-09-07 05:40 | W.PN.UPDATE ---
Update Note
Progress Note Update
Correction: Spoke with Dr. Sarmiento about empiric antibiotic choice not Dr. Rodrigues
[2024-09-07] MEDS: NSS 500 IV (05:46)
--- NOTE | 2024-09-07 06:51 | CON.GI ---
Addendum entered and electronically signed by Tomas Reyna MD 09/07/24 11:54:
I saw and examined the patient.
The LPN OR MEDICAL ASSISTANT's note was reviewed and I agree with the note.
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 Follow-up with [facility]
-- Abdominal pain/elevated LFT with total bilirubin 33.3/fever/MRI showing complete common bile duct obstruction secondary to infiltrating mass
plan
Case discussed with Dr. Sun/patient/patient's family/oncology. Plan is to do ERCP with palliative stenting today
If ERCP unsuccessful will recommend IR evaluation for PTC for decompression
Continue IV antibiotic
INR pending this a.m.
Continue IV fluid
Follow-up with oncology recommendations
Original Note:
Consultation
-
Date/Time Consultation Requested: 09/06/24 1750
Date/Time Consultation Performed: 09/07/24 0830
Requesting Provider: BLAKE Ferrari
Performing Provider: BLAKE Spann, Tomas Reyna MD
Reason for Consultation: increased LFT's
Medical History
Chief Complaint / HPI
Chief Complaint: abdominal pain
History of Present Illness:
Pt is a 63yo with hx prior appe, HTN, hypercholesterolemia, renal insufficiency, glucose intolerance, Igm deficiency, hemochromatosis carrier, fatty liver and gallbladder invasive adenocarcinoma diagnosed with dot in 2022 with mets to liver. Pt
completed chemo after diagnosis and was followed closely with Dr. Livingston from oncology. he was noted with liver tumor growth last fall and restarted chemo. He just completed 16 round with Keytruda and due to start new chemo next week. He is
now noted with abdominal pain, poor appetite and jaundice along with pale stool and dark urine over last week. He was also noted with rash since day prior to admission. He had recent outside hospital MRI with enlarging liver masses. On admission
he is noted fever 102.8, with WBC 12,200, hbg 12.3, platelets 193, Na 127, BUN 25, creat 1.5 and marked elevated LFT's with bili 33.3, AST 237, ALT 192 alk phos 700 and lipase of 30. MRI with MRCP with complete Common bile duct obstruction
secondary to infiltrating mass with probable bile duct cancer with severe intra and extrahepatic biliary dilatation proximal to obstruction marked increased since 08/2024 with severe multi focal mets, splenomegaly, small panc cysts and mild ascites.
At this time patient admits to itchiness and diffuse rash. He does have some GERD and abdominal pain after eating. He has had about 7 lbs wt loss with constipation on Miralax and Colace. Pt otherwise denies dysphagia, nausea, vomiting,
diarrhea, or rectal bleeding.
Past Medical History
Past Medical History: Cancer (gallbladder adeno CA with mets to liver), HTN, Hypercholesterolemia, Renal Failure (renal insufficiency) and Other (gout, hemochromatosis carrier, fatty liver, glucose intolerance)
Past Surgical History: Appendectomy, Cholecystectomy, Orthopedic (b/l hernia repair with mesh) and Other (robotic lap inguinal hernia repair with mesh, liver biopsy )
Social History
Tobacco: Non-Smoker
Alcohol: None
Drug: None
Living: With Family (daughter )
Employment: Employed
Family History
Family History: Other (father lung CA)
Allergies / Home Medications
Allergy/AdvReac Type Severity Reaction Status Date / Time
Penicillins Allergy many years Verified 09/06/24 14:40
ago (')
�Medication �Instructions �Recorded
amlodipine 5 mg tablet 5 mg PO QPM 03/23/19
atenolol 25 mg tablet 25 mg PO DAILY 03/23/19
allopurinol 100 mg tablet 100 mg PO DAILY 09/22/22
losartan 100 1 tab PO QPM 09/22/22
mg-hydrochlorothiazide 25 mg tablet
aspirin 81 mg tablet 81 mg PO DAILY 12/21/22
Review of Systems
-
History Source: Patient and Family
Constitutional: Reports Weight Loss ( 7 lbs ) and Fatigue
EENT: Reports No Symptoms
Respiratory: Reports No Symptoms
Cardiac: Reports No Symptoms
Abdomen/GI: Reports Abdominal Pain (post prandial pain ), Constipated and Other (chan stools)
: Reports Dark Urine
Musculoskeletal: Reports No Symptoms
Skin: Reports Rash (diffuse rash )
Neurological: Reports Weakness
Endocrine: Reports No Symptoms
Hematologic/Lymphatic: Reports No Symptoms
Vital Signs
Temp Pulse Resp BP Pulse Ox
100.1 F 83 20 108/60 95
09/06/24 23:22 09/06/24 23:22 09/06/24 23:22 09/06/24 23:22 09/06/24 23:22
Physical Exam
Exam
General: Well Developed and No Apparent Distress
HEENT: Other (sclera icteric)
Respiratory: Clear
Cardiac: Regular Rhythm
GI: Soft, Non Tender and Non Distended
Musculoskeletal: No Clubbing and No Cyanosis
Skin: Warm and Rash (diffuse rash )
Neuro: Awake, Alert and AO x 3
Psych: Calm
Results
WBC 10.9 10^3/uL (4.8-10.8) H 09/07/24 03:28
Hgb 10.8 g/dL (13.0-18.0) L 09/07/24 03:28
Hct 30.3 % (39.0-52.0) L 09/07/24 03:28
MCV 88.6 fL (80.0-94.0) 09/07/24 03:28
Plt Count 161 10^3/uL (130-400) 09/07/24 03:28
Absolute Neuts (auto) 10.7 10^3/uL (1.4-6.5) H 09/06/24 14:47
Sodium 129 mmol/L (135-145) L 09/07/24 03:28
Potassium 3.5 mmol/L (3.5-5.1) 09/07/24 03:28
Chloride 95 mmol/L (98-107) L 09/07/24 03:28
Carbon Dioxide 25 mmol/L (22-30) 09/07/24 03:28
BUN 26 mg/dl (9-20) H 09/07/24 03:28
Creatinine 1.3 mg/dL (0.7-1.3) 09/07/24 03:28
Calcium 8.7 mg/dl (8.4-10.2) 09/07/24 03:28
Total Bilirubin 30.6 mg/dl (0.2-1.3) H* 09/07/24 03:28
AST 171 U/L (17-59) H 09/07/24 03:28
ALT 145 U/L (0-50) H 09/07/24 03:28
Alkaline Phosphatase 586 U/L (38-126) H 09/07/24 03:28
Lipase 30 U/L (23-300) 09/06/24 14:47
Diagnostic Image Results:
09/06/24 MRI abd with MRCP
1. COMPLETE COMMON BILE DUCT OBSTRUCTION which appears to be secondary to an infiltrating mass (probably BILE DUCT CANCER). Severe intrahepatic and extrahepatic biliary dilatation proximal to the obstruction which has markedly increased since
08/22/2024.
2. SEVERE MULTIFOCAL HEPATIC METASTATIC DISEASE.
3. Previous cholecystectomy.
4. Mild splenomegaly.
5. Small pancreatic cysts.
6. Mild ascites.
03/2024-- MRI -- [place](per family pt gets MRI's in [place] but all treatment is here)
no change in hepatic mets, slight decreased size of largest lesion, slight increased size in medial inferior right lobe lesion, periportal lymph node
No prior GI ERCP or internvention needed in past
Assessment / Plan
-
Pt is a 63yo with hx prior appe, HTN, hypercholesterolemia, renal insufficiency, glucose intolerance, Igm deficiency, hemochromatosis carrier, fatty liver and gallbladder invasive adenocarcinoma diagnosed in 2022 with mets to liver. He has had
prior dot and chemo and follow with Dr. Livingston from oncology. He is now noted with abdominal pain, poor appetite and jaundice along with pale stool and dark urine. He just completed 18 week course and 2 dose of Keytruda and due to start new
regiment next week. He had recent outside hospital MRI with enlarging liver masses. On admission he is noted with WBC 12,200, hbg 12.3, platelets 193, Na 127, BUN 25, creat 1.5 and marked elevated LFT's with bili 33.3, AST 237, ALT 192 alk phos
700 and lipase of 30. MRI with MRCP with complete Common bile duct obstruction secondary to infiltrating mass with probable bile duct cancer with severe intra and extrahepatic biliary dilatation proximal to obstruction marked increased since 08/2024
with severe multi focal mets, splenomegaly, small panc cysts and mild ascites.
-abdominal pain/jaundice with marked elevated LFT's with emery up to 33 on admission and concern for completed CBD obstruction
-known gallbladder invasive adeno CA with mets to liver with recent chemo
-fever
-diffuse rash
-hyponatremia/hypokalemia
other med problems:
-HTN
-hypercholesterolemia
-IGM deficiency
-fatty liver
glucose intolerance
-renal insufficiency
-hemochromatosis carrier
PLAN:
Etiology of symptom with concern for biliary obstruction process with known gallbladder adeno with mets to liver vs other
MRI as noted
-will review with Dr. Sun for stenting
NPO pending possible GI procedure
cont abx await cultures with fever
hold heparin and add compression sleeves
add D bili
add INR
for oncology evaluation
sister and daugher updated
-
-
Thank you for consultation and allowing me to participate in the patient's care. Please call the ethylbenzene converter helper GI physician during the after hours with any questions or concerns.
--- NOTE | 2024-09-07 08:00 | W.PN.HOSP.TC ---
Addendum entered and electronically signed by Tanya El MD 09/07/24 15:41:
I saw and evaluated the patient. I reviewed the resident�s note and agree with findings and plan as documented in the resident�s note except for changes in my documentation.
63-year-old presented with abdominal pain. 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 He completed chemotherapy. Follows with Dr. Livingston. Chemotherapy was restarted fall of last year because
of liver mass. Has been on Keytruda and chemotherapy. He also has itchiness and rash and also lost 7 pounds.
09/06/2024-MRI/MRCP-complete CBD obstruction likely from an infiltrating mass. Severe intrahepatic and extrahepatic biliary dilatation proximal to the obstruction which has markedly increased since 08/22/2024. Severe multifocal hepatic metastatic
disease. Previous cholecystectomy. Mild splenomegaly. Small pancreatic cyst. Mild ascites.
Icterus
Diffuse rash-maculopapular all over the body
Cardiovascular system S1-S2 appreciated
Chest clear to auscultation
Abdomen mild diffuse tenderness
No pedal edema
# Abdominal pain with markedly elevated LFTs
Likely secondary to CBD obstruction/mets
Sepsis/fever likely secondary to above-rule out cholangitis
Advanced endoscopy consultation-GI
Continue empiric antibiotics cefepime and Flagyl
Blood cultures pending
Infectious disease consultation
Keep NPO for GI procedure
# Rash unclear cause. Family states that he was recently started on tramadol. Avoid any tramadol. Triamcinolone ointment and 1 dose of Benadryl for itching.
# Adenocarcinoma of the gallbladder with metastasis
Underwent laparoscopic cholecystectomy 09/25/2022 pathology came back with invasive adenocarcinoma and also had a lesion in the liver.
Patient was referred to Dr. Augusto Ricardo at [facility]
Completed cisplatin plus gemcitabine plus Keytruda 8 cycles in May 2023
Keytruda alone since June 2023 through November 2023.
MRI in December showed progressive disease-patient was started on cisplatin/gemcitabine/Keytruda 12/22/2023
Plan was to start FOLFOX regimen next week
Follows with Dr. Livingston
Consult oncology
# Lactic acidosis-likely secondary to liver disease
# Hypomagnesemia-replace
# Hyponatremia-likely SIADH. Check serum and urine osmolality and urine sodium. Do not restart hydrochlorothiazide. Hypertonic fluids while n.p.o.
# Abnormal urinalysis-antibiotic should cover for UTI. Wait for cultures
# Acute kidney ryfsxr-vhhmpk-xecu losartan hydrochlorothiazide
# Anemia likely secondary to malignancy
# Hypertension-continue Norvasc and atenolol. Hold losartan hydrochlorothiazide
# Gout-continue allopurinol
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
# Fatty liver
# DVT prophylaxis-subcutaneous heparin on hold for possible GI procedure. SCDs
# Full code
Discussed with multiple family members at bedside
Prognosis guarded
Part of this note was created using voice recognition system. Occasional wrong word or��sound alike� substitutions may have inadvertently occurred due to the inherent limitations of voice recognition software. If noted kindly bring it to my
attention for correction.
Original Note:
Today's Communication/Plan
-
ERCP with palliative stenting for today
Assessment / Plan
Assessment / Plan
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
Plan:
#Obstructive jaundice secondary due to CBD mass
#History of advanced cholangiocarcinoma
- Currently on chemo, follows with Dr. Livingston outpatient
�MRCP 09/06: Complete CBD obstruction secondary to infiltrating mass possible bile duct cancer
- T. bili 33.3, AST 237, ALT 192, alk phos 700 on 09/06
-Oncology consulted
- GI consult appreciated
-ERCP with palliative stenting to be done today with Dr. Sun
# Leukocytosis likely ?Cholangitis
- WBC 12.0, afebrile
- Continue to monitor
# Anemia of chronic disease
- Hb at 10.9 today decreased from 12.3
- No signs of active bleeding
- transfuse if hb less than 7
# Hyponatremia/ALEX likely dehydration
- Sodium 127, creatinine 1.5 on admission
� Sodium increasing to 129, creatinine at 1.3, resolving
- hold losartan/hctz
- Continue to monitor
# Gout
- continue Allopurinol
# Hypertension
- continue Norvasc, atenolol
- Hold losartan/HCTZ
DVT prophylaxis- Heparin subcu
Full code
Anticipated Discharge: 24 - 48 hours
Subjective/Interval History
-
Date of Service: September 07, 2024
Patient is resting comfortably in bed but appears very jaundiced.
Objective Data
-
Labs:
Laboratory Results
09/07/24 09/07/24
03:28 07:16
WBC 10.9 H
Hgb 10.8 L
Hct 30.3 L
Plt Count 161
PT Pending
INR Pending
Sodium 129 L
Potassium 3.5
Chloride 95 L
Carbon Dioxide 25
BUN 26 H
Creatinine 1.3
Glucose 103 H
Calcium 8.7
Total Bilirubin 30.6 H*
AST 171 H
ALT 145 H
Alkaline Phosphatase 586 H
Vital Signs:
Vital Signs
Temp Pulse Resp BP Pulse Ox
100.1 F 83 20 108/60 95
09/06/24 23:22 09/06/24 23:22 09/06/24 23:22 09/06/24 23:22 09/06/24 23:22
I&O
09/06/24 09/07/24 09/08/24
06:59 06:59 06:59
Intake Total 2091
Balance 2091
Review of Systems
-
All other systems: Reviewed and negative
Physical Exam
-
General: No Apparent Distress and Other (jaundiced)
HEENT: Normocephalic and Atraumatic
Respiratory: Clear to Auscultation
Cardiac: Regular Rhythm and S1/S2
GI: Soft, Nondistended and Tender (mild tenderness in right upper quadrant)
Musculoskeletal: No Cyanosis and No Edema
Skin: Warm, Dry and Jaundice
Neuro: Awake, Alert and Oriented
[2024-09-07] MEDS: TENORMIN 25 MG PO (08:24)
[2024-09-07] MEDS: LOW STRENGTH ASPIRIN 81 MG PO (08:24)
[2024-09-07] MEDS: NSS 1000 IV (08:24)
[2024-09-07] MEDS: ZYLOPRIM 100 MG PO (08:24)
[2024-09-07] MEDS: MAGNESIUM SULFATE 100 IV (10:24)
[2024-09-07] MEDS: PROTONIX IV 40 MG IV (10:26)
[2024-09-07] MEDS: NSS (PRESERVATIVE FREE) 10 ML IV (10:26)
[2024-09-07 10:39] LABS: Lactic Acid 1.2 mmol/L (0.7-2.0)
--- NOTE | 2024-09-07 11:04 | CON.ONC ---
Impression
Impression
Advanced cholangiocarcinoma status post progressive disease
Acute common bile duct obstruction secondary to above
High-volume metastases in the liver
Rule out ascending cholangitis
Anxiety disorder
Mild normocytic anemia hemoglobin 10.8 g/dL post hydration
Plan
Plan
Antibiotic coverage
MRCP reviewed
Case discussed with GI
ERCP today with attempted stenting to decompress
If unable to stent will need IR directed procedure
Anticipate initiation of FOLFOX when bilirubin has regressed to an acceptable range
Monitor chemistries and CBC
Will follow
Patient History
History of Present Illness
Patient is a pleasant 63-year-old gentleman with advanced cholangiocarcinoma diagnosed in August 2022. Patient has been on systemic therapy with cisplatin/gemcitabine/pembrolizumab with recent progression. Pembrolizumab last received 3 weeks ago.
Patient developed sudden onset of abdominal discomfort and jaundice. He presented to the emergency room from the office with a bilirubin of 33. Temperature to 102 noted but no additional symptoms of ascending cholangitis. MRCP completed which
shows common bile duct obstruction.
Past-Medical/Surgical History
Past Medical History:gallbladder adeno CA with mets to liver, HTN, Hypercholesterolemia, Renal Failure (renal insufficiency) and Other (gout, hemochromatosis carrier, fatty liver, glucose intolerance)
Past Surgical History: Appendectomy, Cholecystectomy, Orthopedic (b/l hernia repair with mesh) and Other (robotic lap inguinal hernia repair with mesh, liver biopsy )
Social History
Tobacco: Non-Smoker
Alcohol: None
Drug: None
Living: With Family (daughter )
Employment: Employed
Family History
Family History: Other (father lung CA)
Patient Medication
�Medication �Instructions �Recorded �Confirmed �Last Taken �Type
amlodipine 5 mg tablet 5 mg PO QPM Blood Pressure 03/23/19 09/06/24 05/07/24 History
atenolol 25 mg tablet 25 mg PO DAILY Blood Pressure 03/23/19 09/06/2405/08/25 History
allopurinol 100 mg tablet 100 mg PO DAILY Gout 09/22/22 09/06/24 05/08/24 History
losartan 100 1 tab PO QPM Blood Pressure 09/22/22 09/06/24 05/07/24 History
mg-hydrochlorothiazide 25 mg tablet
aspirin 81 mg tablet 81 mg PO DAILY Blood Clot 12/21/22 09/06/24 05/04/24 History
Prevention/Tx
Active Medications
Generic Name Dose Route Start Last Admin
Trade Name Freq PRN Reason Stop Dose Admin
Allopurinol 100 mg 09/07/24 08:00 09/07/24 08:24
Allopurinol 100 Mg Tablet PO 10/05/24 07:59 100 mg
DAILY SVITLANA Administration
Amlodipine Besylate 5 mg 09/06/24 21:07 09/06/24 21:21
Amlodipine 5 Mg Tablet PO 10/04/24 21:06 5 mg
QPM SVITLANA Administration
Aspirin 81 mg 09/07/24 08:00 09/07/24 08:24
Aspirin 81 Mg Chewable Tablet PO 10/05/24 07:59 81 mg
DAILY SVITLANA Administration
Atenolol 25 mg 09/07/24 08:00 09/07/24 08:24
Atenolol 25 Mg Tablet PO 10/05/24 07:59 25 mg
DAILY SVITLANA Administration
Bisacodyl 10 mg 09/06/24 21:07
Bisacodyl 10 Mg Rectal Suppository RECTAL 10/04/24 21:06
[id number] PRN
constipation
Cefepime HCl 1,000 mg 09/07/24 00:00 09/07/24 05:21
Cefepime Hcl 1,000 Mg/11.3 Ml Vial IV 1,000 mg
Q6H SVITLANA Administration
Heparin Sodium 5,000 units 09/06/24 21:07 09/06/24 21:21
Heparin 5,000 Units/Ml 1 Ml Vial SC 10/04/24 21:06 5,000 units
Q12 SVITLANA Administration
Heparin Sodium (Porcine) 500 unit 09/07/24 09:15
Heparin Flush Pf (100 Unit/Ml) 5 Ml Syringe IV 10/05/24 09:14
PER PROTOCOL PRN
PORT FLUSH
Metronidazole 100 mls @ 100 mls/hr 09/07/24 00:00 09/06/24 23:52
Flagyl 500 Mg IV 100 mls
Q12H SVITLANA Administration
Dextrose/Sodium Chloride 1,000 mls @ 75 mls/hr 09/07/24 10:00
D5/0.9% Sodium Chloride IV
.[id number] SVITLANA
Lorazepam 0.5 mg 09/06/24 21:42 09/06/24 22:07
Lorazepam 0.5 Mg Tablet PO 10/04/24 21:41 0.5 mg
HSPRN PRN Administration
anxiety
Pantoprazole Sodium 40 mg 09/07/24 09:00 09/07/24 10:26
Pantoprazole Sodium 40 Mg/10 Ml Vial IV 10/05/24 08:59 40 mg
DAILY SVITLANA Administration
Polyethylene Glycol 17 grams 09/06/24 21:07
Polyethylene Glycol Powder 17 Grams Packet PO 10/04/24 21:06
DAILYPRN PRN
constipation
Senna/Docusate Sodium 1 tablet 09/06/24 21:07
Docusate W/Senna (Mireille-Colace) Tablet PO 10/04/24 21:06
BIDPRN PRN
constipation
Sodium Chloride 0 flush 09/06/24 22:00
Sodium Chloride 0.9% (Flush) Syringe IV 10/04/24 21:59
PER PROTOCOL SVITLANA
Sodium Chloride 10 ml 09/07/24 09:00 09/07/24 10:26
Sodium Chloride 0.9% (Preservative Free) 10 Ml Vial IV 10/05/24 08:59 10 ml
DAILY SVITLANA Administration
Sterile Water 10 ml 09/07/24 00:00 09/07/24 05:21
Sterile Water For Injection 10 Ml Vial IV 10/05/24 00:00 10 ml
Q6H SVITLANA Administration
Review of Systems
-
Currently having no abdominal pain but has had paroxysms of discomfort associated with eating. Has had increased anorexia. Frankly jaundiced although the patient does not notice. Patient has extreme anxiety. Reports light-colored stools and dark
urine as expected. No additional complaints on 10 point review.
Physical Exam
-
Exam
General: Well Developed and No Apparent Distress
HEENT: Scleral icterus
Respiratory: Clear
Cardiac: Regular Rhythm
GI: Soft, Non Tender and Non Distended
Musculoskeletal: No Clubbing and No Cyanosis
Skin: Warm and Rash diffuse macular rash secondary to exposure to a heating blanket
Neuro: Awake, Alert and AO x 3
Psych: Calm
Labs
Lab Results
WBC 10.9 10^3/uL (4.8-10.8) H 09/07/24 03:28
RBC 3.42 10^6/uL (4.70-6.10) L 09/07/24 03:28
Hgb 10.8 g/dL (13.0-18.0) L 09/07/24 03:28
Hct 30.3 % (39.0-52.0) L 09/07/24 03:28
MCV 88.6 fL (80.0-94.0) 09/07/24 03:28
MCH 31.6 pg (27.0-31.0) H 09/07/24 03:28
MCHC 35.6 g/dL (33.0-37.0) 09/07/24 03:28
RDW 15.1 % (11.5-14.5) H 09/07/24 03:28
Plt Count 161 10^3/uL (130-400) 09/07/24 03:28
MPV 9.0 fL (7.4-10.4) 09/07/24 03:28
Abs Immat Gran (auto) 0.1 10^3/uL (0-0.05) H 09/06/24 14:47
Absolute Neuts (auto) 10.7 10^3/uL (1.4-6.5) H 09/06/24 14:47
Absolute Lymphs (auto) 0.2 10^3/uL (1.2-3.4) L 09/06/24 14:47
Absolute Monos (auto) 1.0 10^3/uL (0.1-0.6) H 09/06/24 14:47
Absolute Eos (auto) 0.2 10^3/uL (0-0.7) 09/06/24 14:47
Absolute Basos (auto) 0.0 10^3/uL (0-0.2) 09/06/24 14:47
Immature Gran % 0.7 % (0-0.5) H 09/06/24 14:47
Neutrophils % 87.6 % (42.2-75.2) H 09/06/24 14:47
Lymphocytes % 1.9 % (20.5-51.1) L 09/06/24 14:47
Monocytes % 7.8 % (1.7-9.3) 09/06/24 14:47
Eosinophils % 1.8 % (0-6) 09/06/24 14:47
Basophils % 0.2 % (0-2) 09/06/24 14:47
Creatinine 1.3 mg/dL (0.7-1.3) 09/07/24 03:28
Vital Signs
Vital Signs
Temp Pulse Resp BP Pulse Ox
99.5 F 88 16 116/63 96
09/07/24 08:08 09/07/24 08:08 09/07/24 08:08 09/07/24 08:08 09/07/24 08:08
[2024-09-07 11:08] LABS: INR 1.28; PT 16.5 Sec (11.4-14.6)
--- NOTE | 2024-09-07 11:38 | CM ---
Patient seen at bedside with sister & his children
IA completed
dx: Obstructive Jaundice
PMH: :gallbladder adeno CA with mets to liver, HTN, Hypercholesterolemia, Renal Failure (renal insufficiency)
NPO pending possible GI procedure
Lives with daughter Raysa in a 2 story home, no steps to enter, flight to bed/bath
PLOF: Independent
Denies DME
Has had [facility] in past, Denies rehab
discussed CM role & stated available for needs
Denies any insecurities
PCP: Marc Walls
Pharmacy: [facility], [address], [place]
PLAN: TBD, CM to continue to follow hospital progression for dispo planning/needs
[2024-09-07 12:11] LABS: Osmolality Serum 268 mOsm/kg (275-300)
[2024-09-07 12:40] LABS: Direct Bilirubin 26.4 mg/dl (0.0-0.4)
[2024-09-07] MEDS: FLAGYL 500 MG 100 IV ×2 (12:46→22:58)
[2024-09-07] MEDS: ZOFRAN 4 MG IV (17:08)
--- NOTE | 2024-09-07 17:15 | CON.ID ---
Consultation
-
Date/Time Consultation Requested: 09/07/2024 0919
Date/Time Consultation Performed: 09/07/2024 1707
Requesting Provider: Dr. El
Performing Provider: Dr. Gonzales
Reason for Consultation: Fever
Chief Complaint / Past History
History of Present Illness
Soham Fairbanks is a 63-year-old man with a significant past medical history of cholangiocarcinoma being evaluated at the request of Dr. Rondon in regards to fever. History is obtained from chart review, along with patient interview. Additional
history was obtained from the patient's family who is at the bedside.
The patient was diagnosed with cholangiocarcinoma in October 2022 following a cholecystectomy. Following diagnosis he was placed on a course of chemotherapy, and then was receiving Keytruda. He then received another round of chemotherapy, but had
progression of disease. Approximately 2 weeks ago he noted increasing abdominal pain following eating, along with the development of progressive jaundice (starting about 5 days ago), and progressively poor appetite. He ultimately was sent in by
his Oncologist for further evaluation. Here, he was found to have markedly elevated bilirubin level (33), along with transaminitis. Abdominal imaging revealed dilated intrahepatic ducts and today he underwent ERCP with stenting of the biliary
duct. Overnight, he developed a fever to 102.8 degrees. Blood cultures were obtained, the patient was placed on empiric antibiotics and Infectious Diseases is asked to comment upon further antimicrobial therapy. At present, he notes only nausea.
He denies any current fevers or chills. Abdominal pain has subsided.
Past History
Additional Past Medical History:
Cholangiocarcinoma
HTN
Gout
Additional Past Surgical History:
Cholecystectomy
Appendectomy
Cardiology repair
Allergy History:
Penicillins Allergy (Verified 09/06/24 14:40)
many years ago ()
Medications Reviewed: Yes
Current Antibiotics:
Cefepime 1 g IV every 6 hours
Metronidazole
Social History
Tobacco: Non-Smoker
Alcohol: Occasional
Drug: None
Personal:
Living: With Family
Employment: Employed
Family History
Family History: Not Pertinent
Review of Systems
Vital Signs
Temp Pulse Resp BP Pulse Ox
99.1 F 69 16 100/56 94
09/07/24 16:41 09/07/24 17:11 09/07/24 17:11 09/07/24 17:11 09/07/24 17:11
Physical Exam
Physical Exam
Constitutional: No Acute Distress, Comfortable, Acutely Ill and Non-toxic
Head: Normocephalic
Eyes: No Conjunctival Hemorrhage and Other (Scleral icterus)
Oral: No Thrush and No Ulcers
Cardiovascular: Regular Rate and S1/S2; Negative S3/S4
Pulmonary: Clear; Negative Wheezes, Rales or Rhonchi
Gastrointestinal: Soft, Tender, Non Distended and No Rebound
Extremities: Edema (Trace); Negative Cyanosis or Erythema
Skin: Jaundice (Profound)
Neurological: Awake and Alert
Psychological: Calm
Lab / Diagnostic Study Results
09/07/24 03:28
09/07/24 03:28
Abs Immat Gran (auto) 0.1 10^3/uL (0-0.05) H 09/06/24 14:47
Absolute Neuts (auto) 10.7 10^3/uL (1.4-6.5) H 09/06/24 14:47
Absolute Lymphs (auto) 0.2 10^3/uL (1.2-3.4) L 09/06/24 14:47
Absolute Monos (auto) 1.0 10^3/uL (0.1-0.6) H 09/06/24 14:47
Absolute Basos (auto) 0.0 10^3/uL (0-0.2) 09/06/24 14:47
Immature Gran % 0.7 % (0-0.5) H 09/06/24 14:47
Neutrophils % 87.6 % (42.2-75.2) H 09/06/24 14:47
Lymphocytes % 1.9 % (20.5-51.1) L 09/06/24 14:47
Monocytes % 7.8 % (1.7-9.3) 09/06/24 14:47
Eosinophils % 1.8 % (0-6) 09/06/24 14:47
Basophils % 0.2 % (0-2) 09/06/24 14:47
PT 16.5 Sec (11.4-14.6) H 09/07/24 10:03
INR 1.28 09/07/24 10:03
Lactic Acid 1.2 mmol/L (0.7-2.0) 09/07/24 10:03
Ur Squamous Epith Cells 0-2 /LPF (Few) 09/06/24 22:22
Microbiology Results
Micro:
09/06/24 22:58 Blood Culture - Pending
Blood/Venous
09/06/24 22:22 Urine Culture - Pending
Urine
09/06/24 22:28 Blood Culture - Pending
Blood/Venous
Imaging:
09/06/2024 MR abdomen: Complete, bile duct obstruction which appears to be secondary to infiltrating mass. There is severe intrahepatic and extrahepatic biliary dilatation proximal to the obstruction, increased from 08/22/2024. There is severe
multifocal hepatic metastatic disease. Please see full dictation for additional detail.
Assessment / Plan
Stage IV cholangiocarcinoma
Bili obstruction; s/p stenting
Hyperbilirubinemia
Transaminitis
Fever
Leukocytosis
Hyponatremia
Hx HTN
Hx gout
Recommendations:
Patient is currently status post biliary stenting
Blood cultures are pending following yesterday's febrile episode.
Continue with current empiric antibiotics.
Monitor temperature curve. At present, difficult to differentiate tumor fever from infection, although minimal leukocytosis may indicate the former.
Follow bilirubin, along with LFTs.
Further recommendations as additional data is returned.
[2024-09-07] MEDS: D5/0.9% SODIUM CHLORIDE 1000 IV (17:28)
[2024-09-07] MEDS: NORVASC 5 MG PO (17:29)
[2024-09-07] MEDS: BENADRYL 12.5 MG IV (17:35)
[2024-09-07 18:33] LABS: Urine Sodium 9 mmol/L (30-90)
[2024-09-07 18:35] LABS: Osmolality Urine 702 mOsm/kg (300-900)
[2024-09-07] MEDS: TRIAMCINOLONE ACETONIDE 0.5% CREAM 1 APPLIC TOPICAL (20:42)
[2024-09-07] MEDS: D5/0.9% SODIUM CHLORIDE IV (23:17)
[2024-09-08 04:50] LABS: Hematocrit 26.8 % (39.0-52.0); Hemoglobin 9.3 g/dL (13.0-18.0); Mean Corp Hgb Conc. 34.7 g/dL (33.0-37.0); Mean Corpuscular Volume 89.3 fL (80.0-94.0); Mean Platelet Volume 9.2 fL (7.4-10.4); Platelet Count 125 10^3/uL (130-400); Red Cell Dist. Width 15.2 % (11.5-14.5); White Blood Cell Count 10.8 10^3/uL (4.8-10.8)
[2024-09-08 04:52] LABS: INR 1.39; PT 17.6 Sec (11.4-14.6)
[2024-09-08 05:09] LABS: ALT (SGPT) 112 U/L (0-50); AST (SGOT) 79 U/L (17-59); Albumin 2.7 g/dl (3.5-5.0); Alkaline Phosphatase 448 U/L (38-126); Blood Urea Nitrogen 35 mg/dl (9-20); Calcium 8.1 mg/dl (8.4-10.2); Carbon Dioxide 22 mmol/L (22-30); Chloride 99 mmol/L (98-107); Estimated Creatinine Clearance 58 ml/min; Glucose 162 mg/dl (70-99); Potassium 3.6 mmol/L (3.5-5.1); Sodium 130 mmol/L (135-145); Total Bilirubin 21.5 mg/dl (0.2-1.3); Total Protein 5.2 g/dl (6.3-8.2); eGFR 51.67
[2024-09-08] MEDS: MAXIPIME 1000 MG IV (05:12)
[2024-09-08] MEDS: STERILE WATER FOR INJECTION 10 ML IV (05:12)
--- NOTE | 2024-09-08 06:32 | W.PN.GI.CBS2 ---
Today's Communication / Plan
-
Please see assessment and plan for details.
Assessment / Plan
-
1. Elevated LFTs: Multifactorial, with some component secondary to biliary obstruction secondary to malignancy, now status post bilateral plastic stents to intrahepatic's as well as PD stent. Overall he is doing well, no signs of pancreatitis post
procedure, and very encouraging that LFTs have markedly improved after stents. There is likely some component of metastatic burden, and unclear where his LFTs will jenn, though encouraging that has significant improvement 1 day after stenting.
Again without signs of pancreatitis will advance diet. Blood cultures currently pending those been afebrile and overall doing well. We discussed outpatient x-ray early next week to assess PD stent migration, will arrange follow-up with Dr. Sun in
3 months. He will continue to trend his LFTs with his oncologist, though knows to call if his jaundice worsens or has right upper quadrant pain. If he does well with diet and is okay to DC from GI standpoint.
Subjective
Subjective
Date of Service: September 08, 2024
Patient feeling very well, no fevers, abdominal pain, nausea or vomiting. 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
Objective
Data Reviewed
Laboratory Data:
Laboratory Results
09/08/24 04:21
09/08/24 04:21
Laboratory Results
PT 17.6 Sec (11.4-14.6) H 09/08/24 04:21
INR 1.39 09/08/24 04:21
Magnesium 1.5 mg/dl (1.6-2.3) L 09/07/24 03:28
Total Bilirubin 21.5 mg/dl (0.2-1.3) H* 09/08/24 04:21
AST 79 U/L (17-59) H 09/08/24 04:21
ALT 112 U/L (0-50) H 09/08/24 04:21
Alkaline Phosphatase 448 U/L (38-126) H 09/08/24 04:21
Lipase 30 U/L (23-300) 09/06/24 14:47
Vital Signs and I&O:
Vital Signs
Temp Pulse Resp BP Pulse Ox
97.6 F 59 18 108/58 98
09/07/24 22:57 09/07/24 22:57 09/07/24 22:57 09/07/24 22:57 09/07/24 22:57
I&O
09/06/24 09/07/24 09/08/24
06:59 06:59 06:59
Intake Total 2091 530 / 530
Balance 2091 530 / 530
Physical Exam
Physical Exam
General: NAD
Abdomen: normal bowel sounds, soft, no tenderness, no masses or bruits, no ascites
[2024-09-08 07:05] VITALS: BP 104/63
[2024-09-08] MEDS: LOW STRENGTH ASPIRIN 81 MG PO (08:38)
[2024-09-08] MEDS: NSS (PRESERVATIVE FREE) 10 ML IV (08:39)
[2024-09-08] MEDS: PROTONIX IV 40 MG IV (08:39)
[2024-09-08] MEDS: ZYLOPRIM 100 MG PO (08:39)
[2024-09-08] MEDS: TENORMIN 25 MG PO (08:39)
[2024-09-08] MEDS: TRIAMCINOLONE ACETONIDE 0.5% CREAM 1 APPLIC TOPICAL ×2 (08:40→20:22)
[2024-09-08] MEDS: D5/0.9% SODIUM CHLORIDE 1000 IV ×2 (08:52→21:27)
--- NOTE | 2024-09-08 09:24 | PN.CDI ---
CDI
- -
CDI:
Physician Documentation Request
Admit Date: 09/06/24 18:08
Dear Doctor Azael,
Clinical Indicators:
Patient admitted with obstructive jaundice; PMH includes cholangiocarcinoma with liver metastasis.
09/07 note/assessment, -'Pt reports poor intake over 8days prior to admission resulting in 7lb weight loss.
Significant 3.3% weight loss x 1 week.'
-'Pt meets criteria for severe protein calorie malnutrition of acute illness with >2% wt
loss in 1 week, prolonged poor intake prior to admit <50% est energy needs >5days.'
Based on the above information and your assessment, which of the following most accurately represents the patient's nutritional status?
Severe Protein Calorie Malnutrition
Other (please specify)
[place] Criteria ([facility] Hospitalist 2017)
2 or more criteria must be present for either
non severe or severe malnutrition
Note that the criteria differs related to the
presence of an acute or chronic illness
Acute Illness Chronic Illness
Energy Intake Non Severe: <75% for >7 days Non Severe: <75% for >1 month
Severe: <50% for >5 days Severe: <75% for >1 month
Weight Loss Non Severe: 1-2% over 1 week Non Severe: 5% over 1 month
5% over 1 month 7.5% over 3 months
7.5% over 3 months 10% over 6 months
1 year N/A 20% over 1 year
Severe: >2% over 1 week Severe: >5% over 1 month
>5% over 1 month >7.5% over 3 months
>7.5% over 3 months >10% over 6 months
1 year N/A >20% over 1 year
Body Fat Non Severe: Mild Decrease Non Severe: Mild Loss
Severe: Moderate Decrease Severe: Severe Loss
Muscle Mass Non Severe: Mild Decrease Non Severe: Mild Loss
Severe: Moderate Decrease Severe: Severe Loss
Fluid Accumulation Non Severe: Mild Accumulation Non Severe: Mild Accumulation
Severe: Moderate to severe Severe: Moderate to severe
accumulation accumulation
Reduced Medical Staffing Coordinator Strength Non Severe: N/A Non Severe: N/A
Severe: Measurably reduced Severe: Measurably reduced
Additional criteria that can be used to Determine if Mild or Moderate Malnutrition ([employer] Manual 2018)
Mild Moderate Severe
Albumin gm/dl <3.0 gm/dl <2.5 gm/dl <2.0 gm/dl
Pre Albumin mg/dl <15 gm/dl <10 mg/dl <5.0 mg/dl
BMI <18.5 <17 <16
Use of terms such as suspected, likely, concern for, or probable (associated with a specific diagnosis that is being evaluated, monitored, or treated as if it exists) are acceptable and can be coded in the inpatient setting, when documented at the
time of discharge.
Thank you,
MERE Santos RN
CDI Specialist
available via tiger text
Please use your independent medical judgment in providing your response.
--- NOTE | 2024-09-08 09:33 | W.PN.HOSP.TC ---
Today's Communication/Plan
-
recheck creatinine
Assessment / Plan
Assessment / Plan
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
Plan:
#Obstructive jaundice secondary due to CBD mass
#History of advanced cholangiocarcinoma
- Currently on chemo, follows with Dr. Livingston outpatient
�MRCP 09/06: Complete CBD obstruction secondary to infiltrating mass possible bile duct cancer
- T. bili 33.3, AST 237, ALT 192, alk phos 700 on 09/06
- Oncology consulted, appreciated
- GI consult appreciated
- s/p intrahepatic and PD stents with Dr. Sun 09/07
- diet advanced to regular
- pt tolerated diet well
- dispo to home
- recheck CBC CMP LFT on wednesday OP, results sent to PCP and heme/onc
# Leukocytosis likely ?Cholangitis- resolved
- WBC wnl afebrile
- will monitor blood culture, d/c antibiotics
# Anemia of chronic disease
- Hb at 10.9 today decreased from 12.3
- No signs of active bleeding
- transfuse if hb less than 7
# Hyponatremia/ALEX likely dehydration
- Sodium 127, creatinine 1.5 on admission
� Sodium increasing to 130
- creatinine increasing to 1.5
- hold losartan/hctz
- Continue to monitor
# Gout
- continue Allopurinol
# Hypertension
- continue Norvasc, atenolol
- Hold losartan/HCTZ
#Severe Protein Calorie Malnutrition
DVT prophylaxis- Heparin subcu
Full code
Anticipated Discharge: Within 24 hours
Subjective/Interval History
-
Date of Service: September 08, 2024
Patient is resting comfortably in bed and states that his rash has gotten better and is less itchy. He denies any fever, vomiting or nausea.
Objective Data
-
Labs:
Laboratory Results
09/08/24
04:21
WBC 10.8
Hgb 9.3 L
Hct 26.8 L
Plt Count 125 L D
PT 17.6 H
INR 1.39
Sodium 130 L
Potassium 3.6
Chloride 99
Carbon Dioxide 22
BUN 35 H
Creatinine 1.5 H
Glucose 162 H
Calcium 8.1 L
Total Bilirubin 21.5 H*
AST 79 H
ALT 112 H
Alkaline Phosphatase 448 H
Vital Signs:
Vital Signs
Temp Pulse Resp BP Pulse Ox
97.4 F 57 18 104/63 98
09/08/24 07:05 09/08/24 08:39 09/08/24 07:05 09/08/24 08:39 09/08/24 07:05
I&O
09/07/24 09/08/24 09/09/24
06:59 06:59 06:59
Intake Total 2091 530 / 530
Balance 2091 530 / 530
Review of Systems
-
All other systems: Reviewed and negative
Physical Exam
-
General: No Apparent Distress and Other (jaundiced)
HEENT: Normocephalic and Atraumatic
Respiratory: Clear to Auscultation
Cardiac: Regular Rhythm and S1/S2
GI: Soft, Nontender and Nondistended
Musculoskeletal: No Cyanosis and No Edema
Skin: Warm, Dry, Jaundice and Other (Diffuse rash-maculopapular )
Neuro: Awake, Alert and Oriented
Psych: Calm
--- NOTE | 2024-09-08 10:27 | W.PN.ID1 ---
Date of Service
Date of Service: September 08, 2024
Today's Communication
D/C antibiotics with close observation
Assessment / Plan
Stage IV cholangiocarcinoma
Bili obstruction; s/p stenting
Hyperbilirubinemia
Transaminitis
Fever
Leukocytosis
Hyponatremia
Hx HTN
Hx gout
Recommendations:
S/P biliary stenting 09/07/24
Blood cultures are pending following yesterday's febrile episode but no growth to date.
Given normalization of leukocytosis and fevers following biliary stenting, infection is less likely.
Will stop antibiotics at present, but will follow cultures closely and restart if necessary.
Follow bilirubin, along with LFTs.
����������������������������������������������������������
Chief Complaint
-: Fever
Subjective / Review of Systems
Patient seen and examined. Reports overall feeling well. Denies specific complaints today.
Review of Systems: No Fever and No Chills
Vital Signs / Physical Exam
Vital Signs
Vital Signs
Temp Pulse Resp BP Pulse Ox
97.4 F 57 18 104/63 98
09/08/24 07:05 09/08/24 08:39 09/08/24 07:05 09/08/24 08:39 09/08/24 07:05
Physical Exam
Constitutional: No Acute Distress, Comfortable and Non-toxic
Eyes: Other (Scleral icterus)
Cardiovascular: S1/S2; Negative S3/S4
Pulmonary: Clear and Non Labored
Gastrointestinal: Soft, Non Tender and Non Distended
Skin: Jaundice
Neurological: Awake and Alert
Psychological: Calm
Objective Data
Lab Data
Lab Results
09/08/24 04:21
09/08/24 04:21
PT 17.6 Sec (11.4-14.6) H 09/08/24 04:21
INR 1.39 09/08/24 04:21
Estimated Creat Clear 58 ml/min 09/08/24 04:21
Lactic Acid 1.2 mmol/L (0.7-2.0) 09/07/24 10:03
Total Bilirubin 21.5 mg/dl (0.2-1.3) H* 09/08/24 04:21
AST 79 U/L (17-59) H 09/08/24 04:21
ALT 112 U/L (0-50) H 09/08/24 04:21
Alkaline Phosphatase 448 U/L (38-126) H 09/08/24 04:21
Most recent labs reviewed.
Micro Results:
09/06/24 22:22 Urine Culture - Final
Urine NO GROWTH
09/06/24 22:58 Blood Culture - Preliminary
Blood/Venous No Growth in 24 hours- Final report to follow
09/06/24 22:28 Blood Culture - Preliminary
Blood/Venous No Growth in 24 hours- Final report to follow
Imaging:
09/06/2024 MR abdomen: Complete, bile duct obstruction which appears to be secondary to infiltrating mass. There is severe intrahepatic and extrahepatic biliary dilatation proximal to the obstruction, increased from 08/22/2024. There is severe
multifocal hepatic metastatic disease. Please see full dictation for additional detail.
Care Review
Plan reviewed with: Physician (Hospitalist)
[2024-09-08 14:55] VITALS: BP 130/69
--- NOTE | 2024-09-08 15:22 | W.PN.UPDATE ---
Update Note
Progress Note Update
I saw and evaluated the patient. I reviewed the resident�s note and agree with findings and plan as documented in the resident�s note except for changes in my documentation.
63-year-old presented with abdominal pain. 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 He completed chemotherapy. Follows with Dr. Livingston. Chemotherapy was restarted fall of last year because
of liver mass. Has been on Keytruda and chemotherapy. He also has itchiness and rash and also lost 7 pounds.
09/06/2024-MRI/MRCP-complete CBD obstruction likely from an infiltrating mass. Severe intrahepatic and extrahepatic biliary dilatation proximal to the obstruction which has markedly increased since 08/22/2024. Severe multifocal hepatic metastatic
disease. Previous cholecystectomy. Mild splenomegaly. Small pancreatic cyst. Mild ascites.
Wants to go home.
Icterus
Diffuse rash-maculopapular all over the body-[place] better
Cardiovascular system S1-S2 appreciated
Chest clear to auscultation
Abdomen mild diffuse tenderness
No pedal edema
# Abdominal pain with markedly elevated LFTs
Likely secondary to CBD obstruction/mets
Sepsis/fever likely secondary to above-Unlikely cholangitis
Empiric antibiotics cefepime and Flagyl- Stopped
Status post ERCP on 09/07/[address] Sun. Single severe biliary stricture in the lower third of the main bile duct. This was malignant appearing. Middle third of the main bile duct and lower third of the main bile duct, left main hepatic duct,
right main hepatic duct, right intrahepatic branches, left intrahepatic branches and common hepatic duct were moderately dilated. Biliary sphincterotomy, pancreatic stent and sphincterotomy were performed. 1 plastic stent placed into the ventral
PD, 1 plastic stent to the right hepatic duct, 1 plastic stent to the left hepatic duct, 1 stent was removed from PD.
Blood cultures neg
Tolerating diet
LFTs are trending down
# Rash unclear cause. Family states that he was recently started on tramadol. Avoid any tramadol. Triamcinolone ointment and 1 dose of Benadryl for itching. Rash looks much better
# Adenocarcinoma of the gallbladder with metastasis
Underwent laparoscopic cholecystectomy 09/25/2022 pathology came back with invasive adenocarcinoma and also had a lesion in the liver.
Patient was referred to Dr. Augusto Ricardo at [facility]
Completed cisplatin plus gemcitabine plus Keytruda 8 cycles in May 2023
Keytruda alone since June 2023 through November 2023.
MRI in December showed progressive disease-patient was started on cisplatin/gemcitabine/Keytruda 12/22/2023
Plan was to start FOLFOX regimen next week
Follows with Dr. Livingston
Oncology consulted
# Lactic acidosis-likely secondary to liver disease. Normalized
# Hypomagnesemia-replaced. Re check
# Hyponatremia-likely SIADH. Check serum and urine osmolality and urine sodium. Do not restart hydrochlorothiazide. Sodium is improving. Patient needs to be on fluid restriction as outpatient
# Abnormal urinalysis-UTI ruled out. Cultures are negative.
# Acute kidney [id number] losartan hydrochlorothiazide. Will not restart at discharge
# Anemia likely secondary to malignancy
# Hypertension-continue Norvasc and atenolol. Hold losartan hydrochlorothiazide. Will not restart at discharge
# Gout-continue allopurinol
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
# Hypoalbuminemia
# Fatty liver
# DVT prophylaxis-subcutaneous heparin on hold for possible GI procedure. SCDs
# Full code
Discussed with multiple family members at bedside
Discussed with GI
Discussed with infectious disease. Okay for discharge with blood cultures being monitored.
Rpt Creat and mag ordered
He will need CBC, BMP, LFTs, to be done on Wednesday with results to hematology oncology and also to PCP.
OP F/U with Dr. Sun in 3 months
Xray abdomen next week
Part of this note was created using voice recognition system. Occasional wrong word or��sound alike� substitutions may have inadvertently occurred due to the inherent limitations of voice recognition software. If noted kindly bring it to my
attention for correction.
[2024-09-08 16:13] LABS: Estimated Creatinine Clearance 72 ml/min
[2024-09-08] MEDS: ATIVAN 0.5 MG PO ×2 (16:21→21:27)
--- NOTE | 2024-09-08 16:24 | CM ---
Chart reviewed and patient to return to home when stable.
Plan; Home at discharge.
[2024-09-08] MEDS: NORVASC 5 MG PO (17:13)
[2024-09-08 23:39] VITALS: BP 125/76
[2024-09-09 07:00] VITALS: BP 125/71
[2024-09-09] MEDS: MIRALAX 17 GRAMS PO (08:09)
[2024-09-09] MEDS: NSS (PRESERVATIVE FREE) 10 ML IV (08:09)
[2024-09-09] MEDS: ZYLOPRIM 100 MG PO (08:10)
[2024-09-09] MEDS: PROTONIX IV 40 MG IV (08:10)
[2024-09-09] MEDS: LOW STRENGTH ASPIRIN 81 MG PO (08:10)
[2024-09-09] MEDS: ROXICODONE 5 MG PO (08:10)
[2024-09-09] MEDS: TENORMIN 25 MG PO (08:10)
[2024-09-09] MEDS: TRIAMCINOLONE ACETONIDE 0.5% CREAM 1 APPLIC TOPICAL (08:11)
[2024-09-09] MEDS: FLUSH (NSS) 2 FLUSH IV (08:20)
[2024-09-09 08:56] LABS: Hematocrit 26.6 % (39.0-52.0); Hemoglobin 9.3 g/dL (13.0-18.0); Mean Corpuscular Hgb 31.1 pg (27.0-31.0); Platelet Count 168 10^3/uL (130-400); Red Blood Cell Count 2.99 10^6/uL (4.70-6.10); Red Cell Dist. Width 15.7 % (11.5-14.5); White Blood Cell Count 10.8 10^3/uL (4.8-10.8)
[2024-09-09 09:11] LABS: ALT (SGPT) 80 U/L (0-50); AST (SGOT) 56 U/L (17-59); Albumin 2.7 g/dl (3.5-5.0); Alkaline Phosphatase 372 U/L (38-126); Blood Urea Nitrogen 28 mg/dl (9-20); Carbon Dioxide 25 mmol/L (22-30); Chloride 101 mmol/L (98-107); Estimated Creatinine Clearance 79 ml/min; Glucose 102 mg/dl (70-99); Potassium 3.3 mmol/L (3.5-5.1); Sodium 131 mmol/L (135-145); Total Bilirubin 10.9 mg/dl (0.2-1.3); Total Protein 4.9 g/dl (6.3-8.2); eGFR > 60.00
--- NOTE | 2024-09-09 09:45 | W.PN.ONC ---
Today's Communication / Plan
-
Antibiotic coverage post stent placement
ERCP completed with stent
Antibiotic duration as per GI given fever prior to ERCP
Anticipate initiation of FOLFOX when bilirubin has regressed below to single digits
Monitor chemistries and CBC
Office follow-up next week for treatment
Impression
Impression
Advanced cholangiocarcinoma status post progressive disease
Acute common bile duct obstruction secondary to above
High-volume metastases in the liver
Rule out ascending cholangitis
Anxiety disorder
Mild normocytic anemia hemoglobin 10.8 g/dL post hydration
Subjective/Objective
Subjective/Objective
No new complaints. Less significant discomfort in the subxiphoid region. Successful stenting.
Vital Signs:
Vital Signs
Temp Pulse Resp BP Pulse Ox
98 F 70 16 125/71 97
09/09/24 07:00 09/09/24 07:00 09/09/24 07:00 09/09/24 08:10 09/09/24 07:00
Patient remains jaundiced but improved
Heart regular
Lungs clear
Abdomen nonprotuberant
Extremities without pretibial edema
Lab Results:
Laboratory Data
WBC 10.8 10^3/uL (4.8-10.8) 09/09/24 08:43
Hgb 9.3 g/dL (13.0-18.0) L 09/09/24 08:43
Plt Count 168 10^3/uL (130-400) D 09/09/24 08:43
PT 17.6 Sec (11.4-14.6) H 09/08/24 04:21
INR 1.39 09/08/24 04:21
eGFR > 60.00 09/09/24 08:43
[2024-09-09] MEDS: KCL 40 MEQ PO (09:56)
--- NOTE | 2024-09-09 10:22 | W.PN.GI.CBS2 ---
Today's Communication / Plan
-
Please see assessment and plan for details.
Assessment / Plan
-
1. Elevated LFTs: Multifactorial, with some component secondary to biliary obstruction secondary to malignancy, now status post bilateral plastic stents to intrahepatic's as well as PD stent. Overall he is doing well, no signs of pancreatitis post
procedure, and very encouraging that LFTs have markedly improved after stents. There is likely some component of metastatic burden, and unclear where his LFTs will jenn, though encouraging that has significant improvement after stenting.
Follow-up x-ray and appointment with Dr. Sun is set. Will sign off for now, please call back with any further questions.
Subjective
Subjective
Date of Service: September 09, 2024
Patient feeling well overall, had some mild abdominal discomfort though overall eating well. 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
Objective
Data Reviewed
Laboratory Data:
Laboratory Results
09/09/24 08:43
09/09/24 08:43
Laboratory Results
PT 17.6 Sec (11.4-14.6) H 09/08/24 04:21
INR 1.39 09/08/24 04:21
Magnesium 2.0 mg/dl (1.6-2.3) 09/08/24 15:43
Total Bilirubin 10.9 mg/dl (0.2-1.3) H 09/09/24 08:43
AST 56 U/L (17-59) 09/09/24 08:43
ALT 80 U/L (0-50) H 09/09/24 08:43
Alkaline Phosphatase 372 U/L (38-126) H 09/09/24 08:43
Lipase 30 U/L (23-300) 09/06/24 14:47
Vital Signs and I&O:
Vital Signs
Temp Pulse Resp BP Pulse Ox
98 F 70 16 125/71 97
09/09/24 07:00 09/09/24 07:00 09/09/24 07:00 09/09/24 08:10 09/09/24 07:00
I&O
09/08/24 09/09/24 09/10/24
06:59 06:59 06:59
Intake Total 530 / 530 1979
Balance 530 / 530 1979
Physical Exam
Physical Exam
General: NAD, jaundice
Abdomen: normal bowel sounds, soft, no tenderness, no masses or bruits, no ascites
--- NOTE | 2024-09-09 10:34 | W.PN.HOSP.TC ---
Addendum entered and electronically signed by Tanya El MD 09/09/24 12:34:
Severe Protein Calorie Malnutrition
Original Note:
Today's Communication/Plan
-
advised to stay on low fat diet
Discharge
Assessment / Plan
Assessment / Plan
63-year-old presented with abdominal pain. 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 He completed chemotherapy. Follows with Dr. Livingston. Chemotherapy was restarted fall of last year because
of liver mass. Has been on Keytruda and chemotherapy. He also has itchiness and rash and also lost 7 pounds.
09/06/2024-MRI/MRCP-complete CBD obstruction likely from an infiltrating mass. Severe intrahepatic and extrahepatic biliary dilatation proximal to the obstruction which has markedly increased since 08/22/2024. Severe multifocal hepatic metastatic
disease. Previous cholecystectomy. Mild splenomegaly. Small pancreatic cyst. Mild ascites.
Icterus
Diffuse rash-maculopapular all over the body-Looks better
Cardiovascular system S1-S2 appreciated
Chest clear to auscultation
Abdomen nontender on exam
No pedal edema
# Abdominal pain with markedly elevated LFTs
He has mild abdominal discomfort likely secondary to liver mets. He was prescribed tramadol in the past I will change this to oxycodone
Likely secondary to CBD obstruction/mets
Sepsis/fever likely secondary to above-Unlikely cholangitis
Empiric antibiotics cefepime and Flagyl- Stopped
Status post ERCP on 09/07/[address] Sun. Single severe biliary stricture in the lower third of the main bile duct. This was malignant appearing. Middle third of the main bile duct and lower third of the main bile duct, left main hepatic duct,
right main hepatic duct, right intrahepatic branches, left intrahepatic branches and common hepatic duct were moderately dilated. Biliary sphincterotomy, pancreatic stent and sphincterotomy were performed. 1 plastic stent placed into the ventral
PD, 1 plastic stent to the right hepatic duct, 1 plastic stent to the left hepatic duct, 1 stent was removed from PD.
Blood cultures neg
Tolerating diet
LFTs are trending down
# Rash unclear cause. Family states that he was recently started on tramadol. Avoid any tramadol though unclear if this caused allergy.
Triamcinolone ointment . Rash looks much better
# Hypokalemia-replace
# Adenocarcinoma of the gallbladder with metastasis
Underwent laparoscopic cholecystectomy 09/25/2022 pathology came back with invasive adenocarcinoma and also had a lesion in the liver.
Patient was referred to Dr. Augusto Ricardo at [facility]
Completed cisplatin plus gemcitabine plus Keytruda 8 cycles in May 2023
Keytruda alone since June 2023 through November 2023.
MRI in December showed progressive disease-patient was started on cisplatin/gemcitabine/Keytruda 12/22/2023
Plan was to start FOLFOX regimen next week
Follows with Dr. Livingston
Oncology consulted
# Lactic acidosis-likely secondary to liver disease. Normalized
# Hypomagnesemia-replaced.
# Hyponatremia-likely SIADH. Do not restart hydrochlorothiazide. Sodium is improving. Patient needs to be on fluid restriction as outpatient
# Abnormal urinalysis-UTI ruled out. Cultures are negative.
# Acute kidney [id number]-vttn losartan hydrochlorothiazide. Will not restart at discharge
# Anemia likely secondary to malignancy
# Hypertension-continue Norvasc and atenolol. Hold losartan hydrochlorothiazide. Will not restart at discharge. Pt aware.
# Gout-continue allopurinol
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
# Hypoalbuminemia
# Fatty liver
# DVT prophylaxis-subcutaneous heparin
# Full code
Discussed with multiple family members at bedside
He will need CBC, BMP, LFTs, to be done on Wednesday with results to hematology oncology and also to PCP.
OP F/U with Dr. Sun in 3 months
Xray abdomen next week
Part of this note was created using voice recognition system. Occasional wrong word or��sound alike� substitutions may have inadvertently occurred due to the inherent limitations of voice recognition software. If noted kindly bring it to my
attention for correction.
More than 30 minutes spent in discharge including
Final examination of the patient
Summarizing hospital stay
Instructions for continuing care to all relevant caregivers
Preparation of discharge records, prescriptions, and referral forms
Total time spent (in minutes): 36 min
Anticipated Discharge: Today
Subjective/Interval History
-
Date of Service: September 09, 2024
Objective Data
-
Labs:
Laboratory Results
09/09/24
08:43
WBC 10.8
Hgb 9.3 L
Hct 26.6 L
Plt Count 168 D
Sodium 131 L
Potassium 3.3 L
Chloride 101
Carbon Dioxide 25
BUN 28 H
Creatinine 1.1
Glucose 102 H
Calcium 8.0 L
Total Bilirubin 10.9 H
AST 56
ALT 80 H
Alkaline Phosphatase 372 H
Vital Signs:
Vital Signs
Temp Pulse Resp BP Pulse Ox
98 F 70 16 125/71 97
09/09/24 07:00 09/09/24 07:00 09/09/24 07:00 09/09/24 08:10 09/09/24 07:00
I&O
09/08/24 09/09/24 09/10/24
06:59 06:59 06:59
Intake Total 530 / 530 1979
Balance 530 / 530 1979
--- NOTE | 2024-09-09 10:41 | W.DS.TRANS ---
Addendum entered and electronically signed by Tanya El MD 09/10/24 18:06:
Dictation- [id number]
Original Note:
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
-
Discharge Instructions:
Discharge Diagnosis/Procedures cholangiocarcinoma
Diet 2 Gram Sodium,Restrict fluids to 64 oz
Activity As tolerated
Blood Work CBC, BMP, LFTs, magnesium level 09/11/2024
Others Tests Please have abdominal xray completed in 1-2
weeks. Slip given to patient.
Instructions:
Stand-Alone Forms:
Changes to Home Medications: Yes
Discharge Medications:
DC Medications w/original date entered in [employer]
amlodipine 5 mg tablet 5 mg PO QPM Blood Pressure 03/23/19
atenolol 25 mg tablet 25 mg PO DAILY Blood Pressure 03/23/19
allopurinol 100 mg tablet 100 mg PO DAILY Gout 09/22/22
aspirin 81 mg tablet 81 mg PO DAILY Blood Clot Prevention/Tx 12/21/22
oxycodone 5 mg capsule 5 mg PO Q6H PRN moderate pain #30 caps 09/09/24
polyethylene glycol 3350 17 gram oral powder packet (Miralax) 17 g PO DAILY to avoid constipation #30 ea 09/09/24
sennosides 8.6 mg capsule (senna) 8.6 mg PO BID PRN when you take oxycodone #60 caps 09/09/24
triamcinolone acetonide 0.5 % topical cream 1 applic topical BID rash #15 grams 09/09/24
Home Medication Changes
Triamcinolone, Senokot, MiraLAX, oxycodone are new
Stopped losartan hydrochlorothiazide
Pending Results: No
== END 2024-09-09 12:27 | disposition home or self-care (01) | DRG 444 ==
LOC: 3 WEST ACU 18:08
PROVIDERS: Emergency Medicine; Internal Medicine Gastroenterology; Nurse Practitioner Adult Health; Registered Nurse; ADMITTING PHYSICIAN Hospitalist; ATTENDING PHYSICIAN Hospitalist; CONSULT PHYSICIAN Internal Medicine Gastroenterology; CONSULT PHYSICIAN Internal Medicine Infectious Disease; EMERGENCY PHYSICIAN Emergency Medicine; FAMILY PHYSICIAN Family Medicine; OTHER PHYSICIAN Internal Medicine Hematology & Oncology
PROC: 0FPD8DZ Removal of Intraluminal Device from Pancreatic Duct, Via Natural or Artificial Opening Endoscopic (ICD-10-PCS; 2024-09-07)
PROC: 0F758DZ Dilation of Right Hepatic Duct with Intraluminal Device, Via Natural or Artificial Opening Endoscopic (ICD-10-PCS; 2024-09-07)
PROC: 0F768DZ Dilation of Left Hepatic Duct with Intraluminal Device, Via Natural or Artificial Opening Endoscopic (ICD-10-PCS; 2024-09-07)
PROC: 0F7D8DZ Dilation of Pancreatic Duct with Intraluminal Device, Via Natural or Artificial Opening Endoscopic (ICD-10-PCS; 2024-09-07)
DX: K83.1 Obstruction of bile duct (principal); E43 Unspecified severe protein-calorie malnutrition; N17.9 Acute kidney failure, unspecified; E87.20 Acidosis, unspecified; E22.2 Syndrome of inappropriate secretion of antidiuretic hormone; C22.1 Intrahepatic bile duct carcinoma; I10 Essential (primary) hypertension; K21.9 Gastro-esophageal reflux disease without esophagitis; E87.6 Hypokalemia; D72.828 Other elevated white blood cell count; M10.9 Gout, unspecified; D63.0 Anemia in neoplastic disease; K76.0 Fatty (change of) liver, not elsewhere classified; E86.0 Dehydration; E83.42 Hypomagnesemia; E78.00 Pure hypercholesterolemia, unspecified; F41.9 Anxiety disorder, unspecified; G89.3 Neoplasm related pain (acute) (chronic); Z68.27 Body mass index [BMI] 27.0-27.9, adult; Z88.0 Allergy status to penicillin; Z90.49 Acquired absence of other specified parts of digestive tract; Z85.09 Personal history of malignant neoplasm of other digestive organs; Z79.899 Other long term (current) drug therapy; Z79.82 Long term (current) use of aspirin; Z92.21 Personal history of antineoplastic chemotherapy; Z14.8 Genetic carrier of other disease
CPT/HCPCS: 74181; 74183; 74330; 76000; 80053; 81003; 81015; 82248; 82565; 83605; 83690; 83735; 83930; 83935; 84300; 85025; 85027; 85610; 87040; 87086; 99284; A9575; C1726; C1769; C2617

== ENCOUNTER → 2024-09-11 12:32 | Outpatient (REF) | payer BC, SELFPAY ==
[2024-09-11 14:08] LABS: % Basophils 0.2 % (0-2); % Eosinophils 3.1 % (0-6); % Immature Granulocytes 1.1 % (0-0.5); % Lymphocytes 4.5 % (20.5-51.1); % Neutrophils 84.1 % (42.2-75.2); Absolute Eosinophils 0.5 10^3/uL (0-0.7); Absolute Immature Granulocytes 0.2 10^3/uL (0-0.05); Absolute Lymphocytes 0.7 10^3/uL (1.2-3.4); Absolute Monocytes 1.1 10^3/uL (0.1-0.6); Absolute Neutrophils 12.8 10^3/uL (1.4-6.5); Hemoglobin 9.8 g/dL (13.0-18.0); Mean Corp Hgb Conc. 33.8 g/dL (33.0-37.0); Mean Corpuscular Volume 91.8 fL (80.0-94.0); Mean Platelet Volume 9.2 fL (7.4-10.4); Nucleated Red Blood Cells % 0 % (-); Platelet Count 192 10^3/uL (130-400); Red Blood Cell Count 3.16 10^6/uL (4.70-6.10); White Blood Cell Count 15.2 10^3/uL (4.8-10.8)
[2024-09-11 15:48] LABS: ALT (SGPT) 63 U/L (0-50); AST (SGOT) 76 U/L (17-59); Albumin 3.1 g/dl (3.5-5.0); Alkaline Phosphatase 475 U/L (38-126); Blood Urea Nitrogen 18 mg/dl (9-20); Calcium 8.3 mg/dl (8.4-10.2); Carbon Dioxide 23 mmol/L (22-30); Chloride 98 mmol/L (98-107); Direct Bilirubin 7.4 mg/dl (0.0-0.4); Glucose 84 mg/dl (70-99); Magnesium 1.5 mg/dl (1.6-2.3); Sodium 126 mmol/L (135-145); Total Bilirubin 9.6 mg/dl (0.2-1.3); Total Protein 5.7 g/dl (6.3-8.2); eGFR > 60.00
== END ==
LOC: REG 12:32
PROVIDERS: ATTENDING PHYSICIAN Student in an Organized Health Care Education/Training Program; FAMILY PHYSICIAN Family Medicine; OTHER PHYSICIAN Internal Medicine Hematology & Oncology
DX: C23 Malignant neoplasm of gallbladder (principal); C78.7 Secondary malignant neoplasm of liver and intrahepatic bile duct
CPT/HCPCS: 36415; 80053; 82248; 83735; 85025

== ENCOUNTER → 2024-09-26 10:16 | Outpatient (REF) | payer BC, SELFPAY | LOC: RAD 10:16 | PROVIDERS: ATTENDING PHYSICIAN Student in an Organized Health Care Education/Training Program; FAMILY PHYSICIAN Family Medicine; OTHER PHYSICIAN Internal Medicine Hematology & Oncology | DX: K83.1 Obstruction of bile duct (principal); I10 Essential (primary) hypertension; E78.5 Hyperlipidemia, unspecified; E80.6 Other disorders of bilirubin metabolism; C23 Malignant neoplasm of gallbladder | CPT/HCPCS: 74018; 80053; 85025 ==

== ENCOUNTER → 2024-10-09 08:57 | Outpatient (REF) | payer BC, SELFPAY ==
[2024-10-09 09:42] LABS: Hematocrit 32.2 % (39.0-52.0); Hemoglobin 10.6 g/dL (13.0-18.0); Mean Corp Hgb Conc. 32.9 g/dL (33.0-37.0); Mean Corpuscular Hgb 31.5 pg (27.0-31.0); Mean Corpuscular Volume 95.8 fL (80.0-94.0); Mean Platelet Volume 10.2 fL (7.4-10.4); Platelet Count 155 10^3/uL (130-400); Red Blood Cell Count 3.36 10^6/uL (4.70-6.10); Red Cell Dist. Width 19.2 % (11.5-14.5)
[2024-10-09 10:02] LABS: AST (SGOT) 67 U/L (17-59); Alkaline Phosphatase 725 U/L (38-126); Blood Urea Nitrogen 22 mg/dl (9-20); Calcium 8.6 mg/dl (8.4-10.2); Carbon Dioxide 27 mmol/L (22-30); Chloride 96 mmol/L (98-107); Glucose 126 mg/dl (70-99); Sodium 128 mmol/L (135-145); Total Bilirubin 5.2 mg/dl (0.2-1.3); Total Protein 5.6 g/dl (6.3-8.2); eGFR > 60.00
[2024-10-09 10:06] LABS: % Basophils 0.6 % (0-2); % Eosinophils 5.3 % (0-6); % Immature Granulocytes 0.6 % (0-0.5); % Lymphocytes 10.6 % (20.5-51.1); % Monocytes 9.4 % (1.7-9.3); % Neutrophils 73.5 % (42.2-75.2); Absolute Basophils 0.1 10^3/uL (0-0.2); Absolute Eosinophils 0.4 10^3/uL (0-0.7); Absolute Immature Granulocytes 0.1 10^3/uL (0-0.05); Absolute Lymphocytes 0.9 10^3/uL (1.2-3.4); Absolute Monocytes 0.8 10^3/uL (0.1-0.6); Absolute Neutrophils 5.9 10^3/uL (1.4-6.5); Nucleated Red Blood Cells % 0 % (-)
[2024-10-09 10:12] LABS: ALT (SGPT) 51 U/L (0-50)
== END ==
LOC: REG 08:57
PROVIDERS: ATTENDING PHYSICIAN Internal Medicine Hematology & Oncology; FAMILY PHYSICIAN Family Medicine
DX: C23 Malignant neoplasm of gallbladder (principal)
CPT/HCPCS: 36415; 80053; 85025

== ENCOUNTER → 2024-10-24 10:28 | Outpatient (REF) | payer BC, SELFPAY ==
[2024-10-24 10:50] LABS: Hematocrit 26.5 % (39.0-52.0); Hemoglobin 8.8 g/dL (13.0-18.0); Mean Corp Hgb Conc. 33.2 g/dL (33.0-37.0); Mean Corpuscular Hgb 32.4 pg (27.0-31.0); Mean Corpuscular Volume 97.4 fL (80.0-94.0); Mean Platelet Volume 10.4 fL (7.4-10.4); Platelet Count 93 10^3/uL (130-400); Red Blood Cell Count 2.72 10^6/uL (4.70-6.10); Red Cell Dist. Width 20.4 % (11.5-14.5)
[2024-10-24 10:58] LABS: ALT (SGPT) 33 U/L (0-50); AST (SGOT) 50 U/L (17-59); Albumin 2.7 g/dl (3.5-5.0); Alkaline Phosphatase 576 U/L (38-126); Blood Urea Nitrogen 23 mg/dl (9-20); Carbon Dioxide 27 mmol/L (22-30); Chloride 94 mmol/L (98-107); Glucose 112 mg/dl (70-99); Potassium 3.8 mmol/L (3.5-5.1); Sodium 127 mmol/L (135-145); Total Protein 5.3 g/dl (6.3-8.2); eGFR > 60.00
[2024-10-24 11:24] LABS: Band Neutrophils 0 % (0-3); Eosinophils 1 % (0-6); Lymphocytes 20 % (20-51); Monocytes 16 % (2-9); Segmented Neutrophils 63 % (42-75)
[2024-10-24 11:25] LABS: Normal RBC Morphology Yes; Platelets Checked Yes; Total Cells Counted 100; White Blood Cell Count 1.6 10^3/uL (4.8-10.8)
== END ==
LOC: OIDL 10:28
PROVIDERS: ATTENDING PHYSICIAN Internal Medicine Hematology & Oncology
DX: C23 Malignant neoplasm of gallbladder (principal)
CPT/HCPCS: 80053; 85025

== ENCOUNTER → 2024-10-30 09:36 | Outpatient (REF) | payer BC, SELFPAY ==
[2024-10-30 10:12] LABS: Hematocrit 32.1 % (39.0-52.0); Hemoglobin 10.1 g/dL (13.0-18.0); Mean Corp Hgb Conc. 31.5 g/dL (33.0-37.0); Mean Corpuscular Volume 101.6 fL (80.0-94.0); Mean Platelet Volume 9.8 fL (7.4-10.4); Platelet Count 211 10^3/uL (130-400); Red Blood Cell Count 3.16 10^6/uL (4.70-6.10); Red Cell Dist. Width 20.9 % (11.5-14.5); White Blood Cell Count 38.5 10^3/uL (4.8-10.8)
[2024-10-30 10:36] LABS: Absolute Neutrophils -Man Diff 28.4 10^3/uL (1.4-6.5); Band Neutrophils 6 % (0-3); Eosinophils 2 % (0-6); Lymphocytes 6 % (20-51); Monocytes 13 % (2-9); Myelocytes 5 % (-); Platelets Checked Yes; Segmented Neutrophils 68 % (42-75)
[2024-10-30 10:37] LABS: Normal RBC Morphology Yes; Total Cells Counted 100
[2024-10-30 14:31] LABS: ALT (SGPT) 33 U/L (0-50); AST (SGOT) 81 U/L (17-59); Albumin 2.9 g/dl (3.5-5.0); Alkaline Phosphatase 1005 U/L (38-126); Blood Urea Nitrogen 19 mg/dl (9-20); Calcium 9.1 mg/dl (8.4-10.2); Carbon Dioxide 32 mmol/L (22-30); Chloride 95 mmol/L (98-107); Glucose 88 mg/dl (70-99); Sodium 131 mmol/L (135-145); Total Protein 5.6 g/dl (6.3-8.2); eGFR > 60.00
== END ==
LOC: REG 09:36
PROVIDERS: ATTENDING PHYSICIAN Internal Medicine Hematology & Oncology; FAMILY PHYSICIAN Family Medicine
DX: C23 Malignant neoplasm of gallbladder (principal)
CPT/HCPCS: 36415; 80053; 85025

== ENCOUNTER → 2024-11-13 08:58 | Outpatient (REF) | payer BC, SELFPAY ==
[2024-11-13 09:51] LABS: Hematocrit 34.2 % (39.0-52.0); Hemoglobin 11.1 g/dL (13.0-18.0); Mean Corp Hgb Conc. 32.5 g/dL (33.0-37.0); Mean Corpuscular Volume 102.7 fL (80.0-94.0); Platelet Count 129 10^3/uL (130-400); Red Cell Dist. Width 19.9 % (11.5-14.5)
[2024-11-13 10:13] LABS: AST (SGOT) 86 U/L (17-59); Albumin 2.8 g/dl (3.5-5.0); Blood Urea Nitrogen 39 mg/dl (9-20); Calcium 8.4 mg/dl (8.4-10.2); Carbon Dioxide 24 mmol/L (22-30); Chloride 96 mmol/L (98-107); Glucose 108 mg/dl (70-99); Magnesium 2.0 mg/dl (1.6-2.3); Potassium 4.8 mmol/L (3.5-5.1); Sodium 129 mmol/L (135-145); Total Protein 5.5 g/dl (6.3-8.2); eGFR 41.51
[2024-11-13 10:41] LABS: ALT (SGPT) 45 U/L (0-50); Alkaline Phosphatase 1145 U/L (38-126)
[2024-11-13 10:50] LABS: Absolute Neutrophils -Man Diff 24.1 10^3/uL (1.4-6.5); Anisocytosis 1+; Normal RBC Morphology No; Platelets Checked Yes; Total Cells Counted 100
== END ==
LOC: REG 08:58
PROVIDERS: ATTENDING PHYSICIAN Internal Medicine Hematology & Oncology; FAMILY PHYSICIAN Family Medicine
DX: C23 Malignant neoplasm of gallbladder (principal)
CPT/HCPCS: 36415; 80053; 83735; 84439; 84443; 85025